=== PATIENT | male | born 1975 ===

== ENCOUNTER 2016-07-24 02:28 | Emergency (ER) | payer MEDICAID, OTHER ==
[2016-07-24 02:28] VITALS: BMI 27.1
[2016-07-24 02:45] VITALS: BP 125/82; PULSE 112; RESP 20; TEMP 97.5; O2SAT 100
[2016-07-24] MEDS ORDERED: Acetaminophen-Codeine 300/30 mg Tab PO STA (03:59)
[2016-07-24] MEDS ORDERED: Acetaminophen-Codeine 300/30 mg Tab PO ONE (04:03)
--- NOTE | 2016-07-24 04:06 | C.PDOC ---
History Of Present Illness 40 y/o male presents to ER c/o of sinus pressure intermittently x 2 weeks since sinus surgery at [facility]. Pt reports that pain is now worse and no longer relieved with tylenol PO. Pt denies nosebleed, nasal drainage, facial swelling, or headache Time Seen by Provider: 07/24/16 03:34 Chief Complaint (Nursing): ENT Problem History Per: Patient Current Symptoms Are (Timing): Still Present Past Medical History Vital Signs: Last Vital Signs Temp 97.5 F L 07/24/16 02:37 Pulse 112 H 07/24/16 02:37 Resp 20 07/24/16 02:37 BP 125/82 07/24/16 02:37 Pulse Ox 100 07/24/16 02:37 - Medical History PMH: No Chronic Diseases Family History: States: Unknown Family Hx - Social History Hx Tobacco Use: No Hx Alcohol Use: No Hx Substance Use: No - Immunization History Hx Tetanus Toxoid Vaccination: No Hx Influenza Vaccination: No Hx Pneumococcal Vaccination: No Review Of Systems Constitutional: Negative for: Fever ENT: Positive for: Nose Pain, Other (sinus pressure) Respiratory: Negative for: Shortness of Breath Physical Exam - Physical Exam Appears: Well, Non-toxic, No Acute Distress Skin: Normal Color Head: Atraumatic, No Other (parasinuses tenderness) Eye(s): bilateral: Normal Inspection, PERRL Nose: No Discharge, No Epistaxis, No Tenderness Oral Mucosa: Moist Neck: Normal Neurological/Psych: Oriented x3 ED Course And Treatment O2 Sat by Pulse Oximetry: 100 Progress Note: Pt received 2 tabs of tylenol 3 and was advised to follwo up with ENT who performed the surgery for evaluation Disposition Counseled Patient/Family Regarding: Diagnosis, Need For Followup, Rx Given - Disposition Referrals: Your ENT doctor, Office [Other] Disposition: HOME/ ROUTINE Disposition Time: 04:09 Condition: STABLE Additional Instructions: Take meds as directed Follow up with PMD Return to ER if worse Prescriptions: Acetaminophen with Codeine [Tylenol with Codeine #3 Tablet] 1 each PO QID #14 tablet Cetirizine HCl [Zyrtec] 10 mg PO DAILY #20 capsule Instructions: Sinusitis (ED) - Clinical Impression Clinical Impression: Sinus pain
== END 2016-07-24 04:20 | disposition home or self-care (01) ==
LOC: C.ER 02:28
DX: J34.89 Other specified disorders of nose and nasal sinuses (principal)

== ENCOUNTER 2016-09-20 00:28 | Emergency (ER) | payer MEDICAID, OTHER ==
[2016-09-20 00:29] VITALS: BMI 27.1
[2016-09-20 00:44] VITALS: TEMP 98.2; O2SAT 99
[2016-09-20 01:21] LABS: BASO # 0.1 K/uL (0.0-0.2); EOS # 0.2 K/uL (0.0-0.7); EOS % 2.9 % (0.0-4.0); LYMPH # 2.7 K/uL (1.0-4.3); LYMPH % 34.8 % (20.0-40.0); MEAN CELL VOLUME 89.4 fL (80.0-94.0); MEAN CORPUSCULAR HEMOGLOBIN 29.8 pg (27.0-31.0); MEAN CORPUSCULAR HGB CONC 33.4 g/dL (33.0-37.0); MEAN PLATELET VOLUME 7.2 fL (7.2-11.7); MONO # 0.6 K/uL (0.0-0.8); MONO % 7.1 % (0.0-10.0); RED CELL DISTRIBUTION WIDTH 13.1 % (11.5-14.5); WHITE BLOOD COUNT 7.9 K/uL (4.8-10.8)
[2016-09-20 01:29] LABS: CHLORIDE 101 mmol/L (98-107)
[2016-09-20 01:30] LABS: POTASSIUM 4.4 mmol/L (3.6-5.2); SODIUM 140 mmol/L (132-148)
[2016-09-20 01:32] LABS: CARBON DIOXIDE 28 mmol/L (22-30); GFR AFRICAN-AMERICAN > 60
[2016-09-20 01:33] LABS: ALB/GLOB RATIO 1.4 (1.0-2.1); ALKALINE PHOSPHATASE 77 U/L (38-126); ALT/SGPT 26 U/L (21-72); AST/SGOT 23 U/L (17-59); BILIRUBIN,TOTAL 0.3 mg/dL (0.2-1.3); BLOOD UREA NITROGEN 13 mg/dL (9-20); CALCIUM 9.1 mg/dl (8.6-10.4); GLUCOSE,RANDOM 88 mg/dL (75-110); TOTAL PROTEIN 7.2 g/dL (6.3-8.3)
[2016-09-20] MEDS ORDERED: Sodium Chloride 0.9% 1,000 ML ONE (01:38)
[2016-09-20] MEDS ORDERED: Oxycodone/Acetaminophen 5/325 mg Tab ONE ×2 (01:39→03:28)
[2016-09-20] MEDS: Sodium Chloride 0.9% 1,000 ML IV ONE (01:40)
[2016-09-20] MEDS: Oxycodone/Acetaminophen 5/325 mg Tab PO STA ×2 (01:49→03:25)
--- NOTE | 2016-09-20 02:16 | C.PDOC ---
History Of Present Illness 40 year old patient presents to the ED complaining of bilateral testicular pain that started a week ago. He reports the pain is greater on the left than right. Patient states he had this happen before about 30 years ago. There was a lot of swelling, but he doesn't know what caused it. Patient denies fever, dysuria, penile discharge, abdominal pain, concern for STD, or any trauma. Time Seen by Provider: 09/20/16 00:53 Chief Complaint (Nursing): Male Genitourinary History Per: Patient History/Exam Limitations: no limitations Onset/Duration Of Symptoms: Other (1 week) Current Symptoms Are (Timing): Still Present Severity: Mild Pain Scale Rating Of: 3 Quality Of Discomfort: "Pain" Alleviating Factors: None Past Medical History Reviewed: Historical Data, Nursing Documentation, Vital Signs Vital Signs: Last Vital Signs Temp 98.2 F 09/20/16 04:02 Pulse 74 09/20/16 04:02 Resp 20 09/20/16 04:02 BP 128/70 09/20/16 04:02 Pulse Ox 99 09/20/16 04:11 Family History: States: No Known Family Hx - Social History Hx Tobacco Use: No Hx Alcohol Use: Yes Hx Substance Use: No - Immunization History Hx Tetanus Toxoid Vaccination: No Hx Influenza Vaccination: No Hx Pneumococcal Vaccination: No Review Of Systems Except As Marked, All Systems Reviewed And Found Negative. Constitutional: Negative for: Fever Gastrointestinal: Negative for: Abdominal Pain Genitourinary: Positive for: Other (bilateral testicular pain; left > right). Negative for: Dysuria, Penile Discharge Physical Exam - Physical Exam Appears: Non-toxic, No Acute Distress, Other (comfortable) Skin: Warm, Dry Head: Atraumatic, Normacephalic Neck: Normal ROM, Supple Lymphatic: No Adenopathy Chest: Symmetrical Cardiovascular: Rhythm Regular Respiratory: Normal Breath Sounds, No Rales, No Rhonchi, No Wheezing Gastrointestinal/Abdominal: Soft, No Tenderness Back: Normal Inspection Male Genital: Circumcised, Other (no hernia; subjective tenderness to palpation ; no swelling; no erythema; no lesions on penis or on testicles) Extremity: Normal ROM Neurological/Psych: Oriented x3, Normal Speech, Normal Cognition Gait: Steady ED Course And Treatment - Laboratory Results Result Diagrams: 09/20/16 01:19 09/20/16 01:19 O2 Sat by Pulse Oximetry: 99 (room air) Pulse Ox Interpretation: Normal - CT Scan/US Testicular US Other Rad Studies (CT/US): Read By Radiologist (Allan Calzada MD), Radiology Report Reviewed CT/US Interpretation: EXAM: US Scrotum. CLINICAL HISTORY: 40 years old, male ; Pain; Scrotum pain; Additional info: Testicular pain , R/O torsion. TECHNIQUE : Real-time ultrasound of the scrotum with color Doppler and image documentation. COMPARISON: No relevant prior studies available. FINDINGS: Right testicle: No mass. No torsion. Left testicle: No mass. No torsion. Epididymides: Unremarkable as visualized. Scrotum: Small bilateral hydroceles. LEFT varicocele. IMPRESSION: 1. No sonographic evidence of testicular torsion. 2. Incidental/non-acute findings are described above. Progress Note: Percocet and IV fluids were given. Labs were sent. Testicular US was taken. Patient is advised to follow up with Urologist. Return if symptoms worsen. Disposition Counseled Patient/Family Regarding: Studies Performed, Diagnosis, Need For Followup, Rx Given - Disposition Referrals: Samuel Damian MD [Staff Provider] - Disposition: HOME/ ROUTINE Disposition Time: 03:10 Condition: STABLE Additional Instructions: FOLLOW UP WITH UROLOGY WITHIN 1 WEEK USE MEDICATION FOR PAIN NEEDED RETURN TO ER IF SYMPTOMS WORSEN Prescriptions: Acetaminophen with Codeine [Tylenol with Codeine #3 Tablet] 1 each PO Q6 PRN # 15 tablet PRN Reason: pain Instructions: Hydrocele (ED), Varicocele (ED) Print Language: CHINESE - POA Present On Arrival: None - Clinical Impression Clinical Impression: Varicocele, Hydrocele - Scribe Statement The provider has reviewed the documentation as recorded by the Scribsloane Hernandez Provider Attestation: All medical record entries made by the Scribe were at my direction and personally dictated by me. I have reviewed the chart and agree that the record accurately reflects my personal performance of the history, physical exam, medical decision making, and the department course for this patient. I have also personally directed, reviewed, and agree with the discharge instructions and disposition.
--- NOTE | 2016-09-20 02:30 | US ---
EXAM: US Scrotum CLINICAL HISTORY: 40 years old, male; Pain; Scrotum pain; Additional info: Testicular pain , R/O torsion TECHNIQUE: Real-time ultrasound of the scrotum with color Doppler and image documentation. COMPARISON: No relevant prior studies available. FINDINGS: Right testicle: No mass. No torsion. Left testicle: No mass. No torsion. Epididymides: Unremarkable as visualized. Scrotum: Small bilateral hydroceles. LEFT varicocele. IMPRESSION: 1. No sonographic evidence of testicular torsion. 2. Incidental/non-acute findings are described above.
[2016-09-20 02:50] LABS: URINE BILIRUBIN NEGATIVE (NEGATIVE); URINE BLOOD NEGATIVE (NEGATIVE); URINE COLOR Yellow (YELLOW); URINE GLUCOSE (UA) NORMAL (Normal); URINE KETONE NEGATIVE (NEGATIVE); URINE LEUKOCYTE ESTERASE NEG Leu/uL (Negative); URINE PROTEIN NEGATIVE (NEGATIVE); URINE UROBILINOGEN NORMAL mg/dL (0.2-1.0); WBC URINE 1 /hpf (0-5)
[2016-09-20 04:04] VITALS: BP 128/70; PULSE 74; RESP 20
== END 2016-09-20 04:02 | disposition home or self-care (01) ==
LOC: C.ER 00:28
DX: I86.1 Scrotal varices (principal); N43.3 Hydrocele, unspecified
CPT/HCPCS: 76870; 80053; 81001; 85025; 87086; 96360; 99284; J7040

== ENCOUNTER 2017-01-21 07:45 | Emergency (ER) | payer MEDICAID ==
[2017-01-21 07:53] VITALS: O2SAT 100; BMI 29.2
[2017-01-21] MEDS ORDERED: Sodium Chloride 0.9% 1,000 ML IV ONE ×2 (08:33→11:23)
[2017-01-21] MEDS ORDERED: Belladonna-Phenobarbital PO STA (08:33)
[2017-01-21] MEDS ORDERED: Aluminum Hydroxide/Magnesium Hydroxide Susp (30 mL) PO STA (08:33)
[2017-01-21] MEDS ORDERED: Belladonna-Phenobarbital ONE (08:55)
[2017-01-21] MEDS ORDERED: Aluminum Hydroxide/Magnesium Hydroxide Susp (30 mL) ONE (08:56)
[2017-01-21] MEDS ORDERED: Sodium Chloride 0.9% 1,000 ML ONE (08:56)
[2017-01-21 09:01] LABS: BASO % 0.5 % (0.0-2.0); EOS # 0.3 K/uL (0.0-0.7); HEMATOCRIT 43.2 % (35.0-51.0); LYMPH # 1.9 K/uL (1.0-4.3); LYMPH % 28.5 % (20.0-40.0); MEAN CELL VOLUME 90.6 fL (80.0-94.0); MEAN CORPUSCULAR HEMOGLOBIN 31.2 pg (27.0-31.0); MEAN CORPUSCULAR HGB CONC 34.5 g/dL (33.0-37.0); MEAN PLATELET VOLUME 7.5 fL (7.2-11.7); MONO # 0.4 K/uL (0.0-0.8); MONO % 5.9 % (0.0-10.0); WHITE BLOOD COUNT 6.8 K/uL (4.8-10.8)
[2017-01-21 09:04] LABS: CHLORIDE 103 mmol/L (98-107)
[2017-01-21 09:05] LABS: SODIUM 135 mmol/L (132-148)
[2017-01-21 09:07] LABS: BILIRUBIN,TOTAL 0.6 mg/dL (0.2-1.3); CARBON DIOXIDE 22 mmol/L (22-30); GFR AFRICAN-AMERICAN > 60
[2017-01-21 09:08] LABS: ALB/GLOB RATIO 1.3 (1.0-2.1); ALKALINE PHOSPHATASE 80 U/L (38-126); ALT/SGPT 30 U/L (21-72); AST/SGOT 24 U/L (17-59); BLOOD UREA NITROGEN 15 mg/dL (9-20); CALCIUM 9.2 mg/dl (8.6-10.4); GLUCOSE,RANDOM 128 mg/dL (75-110); TOTAL PROTEIN 8.1 g/dL (6.3-8.3)
[2017-01-21 09:43] LABS: URINE BILIRUBIN NEGATIVE (NEGATIVE); URINE BLOOD NEGATIVE (NEGATIVE); URINE COLOR Yellow (YELLOW); URINE GLUCOSE (UA) NORMAL (Normal); URINE KETONE NEGATIVE (NEGATIVE); URINE LEUKOCYTE ESTERASE NEG Leu/uL (Negative); URINE PROTEIN NEGATIVE (NEGATIVE); URINE UROBILINOGEN NORMAL mg/dL (0.2-1.0); WBC URINE < 1 /hpf (0-5)
--- NOTE | 2017-01-21 10:38 | CT ---
PROCEDURE: CT Abdomen and Pelvis without intravenous contrast HISTORY: abd pain COMPARISON: Comparison is made to the previous ultrasound of the abdomen dated 02/10/2016 TECHNIQUE: Axial and reformatted coronal and sagittal CT images of the abdomen and pelvis were obtained without IV or oral contrast administration.. Contrast Dose: 0 Radiation dose: Total exam DLP = 305.16 mGy-cm. This CT exam was performed using one or more of the following dose reduction techniques: Automated exposure control, adjustment of the mA and/or kV according to patient size, and/or use of iterative reconstruction technique. FINDINGS: LOWER THORAX: Unremarkable. LIVER: Unremarkable. No gross lesion or ductal dilatation. GALLBLADDER AND BILE DUCTS: Unremarkable. PANCREAS: Unremarkable. No gross lesion or ductal dilatation. SPLEEN: Unremarkable. ADRENALS: Unremarkable. No mass. KIDNEYS AND URETERS: Unremarkable. No hydronephrosis. No solid mass. VASCULATURE: Unremarkable. No aortic aneurysm. BOWEL: Scattered colonic diverticulosis seen without evidence of diverticulitis. No evidence of bowel obstruction. APPENDIX: Unremarkable. Normal appendix. PERITONEUM: Unremarkable. No free fluid. No free air. LYMPH NODES: Unremarkable. No enlarged lymph nodes. BLADDER: Unremarkable. REPRODUCTIVE: Unremarkable. BONES: No acute fracture. OTHER FINDINGS: None. IMPRESSION: No evidence of nephrolithiasis or hydronephrosis. Scattered colonic diverticulosis without definite evidence of diverticulitis.
--- NOTE | 2017-01-21 11:07 | C.PDOC ---
History Of Present Illness 41-year-old male, presents to the emergency department with complaints of GI distress. Patient states she has been experiencing non-bloody/watery diarrhea that started in the beginning of December. Patient states he lost 16 lbs, and is now experiencing "crampy" abdominal pain, mainly in epigastric and RUQ. Patient notes he is taking Immodium and Pepto-Bismol w/ no resolution of symptoms. Patient states he has never experienced these symptoms in the past. States he drinks alcohol and smokes occasionally. Patient notes associated nausea, one episode of non-bilious/non-bloody vomiting, loss of appetite and weight loss. No other complaints at this time, Time Seen by Provider: 01/21/17 07:56 Chief Complaint (Nursing): Abdominal Pain History Per: Patient History/Exam Limitations: no limitations Onset/Duration Of Symptoms: Days Current Symptoms Are (Timing): Still Present Severity: Moderate Location Of Pain/Discomfort: RUQ, Epigastric Past Medical History Reviewed: Historical Data, Nursing Documentation, Vital Signs Vital Signs: Last Vital Signs Temp 97.4 F L 01/21/17 11:27 Pulse 52 L 01/21/17 11:27 Resp 17 01/21/17 11:27 BP 129/80 01/21/17 11:27 Pulse Ox 100 01/21/17 11:28 Family History: States: No Known Family Hx - Social History Hx Tobacco Use: No Hx Alcohol Use: Yes Hx Substance Use: No - Immunization History Hx Tetanus Toxoid Vaccination: No Hx Influenza Vaccination: No Hx Pneumococcal Vaccination: No Review Of Systems Except As Marked, All Systems Reviewed And Found Negative. Constitutional: Positive for: Sweats, Weight loss. Negative for: Fever, Chills Cardiovascular: Negative for: Chest Pain Respiratory: Negative for: Shortness of Breath Gastrointestinal: Positive for: Nausea, Vomiting, Abdominal Pain, Diarrhea Musculoskeletal: Negative for: Back Pain Skin: Negative for: Rash Neurological: Negative for: Weakness, Numbness, Headache, Dizziness Physical Exam - Physical Exam Appears: Non-toxic, No Acute Distress Skin: Warm, Dry, No Rash Head: Atraumatic, Normacephalic Eye(s): bilateral: Normal Inspection, PERRL Nose: Normal Oral Mucosa: Moist Lips: Normal Appearing Neck: Normal ROM Chest: Symmetrical Cardiovascular: Rhythm Regular, No Murmur Respiratory: Normal Breath Sounds, No Accessory Muscle Use Gastrointestinal/Abdominal: Soft, Tenderness (Epigastric and RUQ) Extremity: Normal ROM Neurological/Psych: Oriented x3, Normal Speech ED Course And Treatment - Laboratory Results Result Diagrams: 01/21/17 08:52 01/21/17 08:52 O2 Sat by Pulse Oximetry: 100 Medical Decision Making Medical Decision Making: CT and lab work grossly normal. Will order 1L fluids and dc pt home for outpatient f/u with GI. Disposition Counseled Patient/Family Regarding: Studies Performed, Diagnosis, Need For Followup - Disposition Referrals: Julio Leone MD [Staff Provider] - Disposition: HOME/ ROUTINE Disposition Time: 11:45 Condition: STABLE Prescriptions: Ciprofloxacin [Cipro] 1 tab PO BID #14 tab Metronidazole [Flagyl] 1 tab PO BID #14 tab Instructions: Enteritis (ED) Forms: [facility] (Turkmen), General Discharge Instructions - POA Present On Arrival: None - Clinical Impression Clinical Impression: Enteritis, Diarrhea - Scribe Statement The provider has reviewed the documentation as recorded by the Scribe (Nick Olsen) All medical record entries made by the Scribe were at my direction and personally dictated by me. I have reviewed the chart and agree that the record accurately reflects my personal performance of the history, physical exam, medical decision making, and the department course for this patient. I have also personally directed, reviewed, and agree with the discharge instructions and disposition.
[2017-01-21 11:28] VITALS: BP 129/80; PULSE 52; RESP 17; TEMP 97.4
== END 2017-01-21 12:02 | disposition home or self-care (01) ==
LOC: C.ER 07:45
DX: K52.9 Noninfective gastroenteritis and colitis, unspecified (principal); R19.7 Diarrhea, unspecified
CPT/HCPCS: 74176; 80053; 80324; 80345; 80346; 80349; 80353; 80358; 80361; 81001; 83605; 83690; 83992; 85025; 96374; 96375; 99285; J2405; J7040

== ENCOUNTER 2017-11-23 12:47 | Emergency (ER) | payer OTHER ==
[2017-11-23 12:54] VITALS: BMI 23.6
[2017-11-23 12:59] VITALS: RESP 18
[2017-11-23] MEDS ORDERED: Sodium Chloride 0.9% 1,000 ML IV ONE ×2 (13:52→15:04)
--- NOTE | 2017-11-23 13:58 | C.PDOC ---
History Of Present Illness 41-YEAR-OLD MALE, PRESENTS TO THE EMERGENCY DEPARTMENT S/P FALL YESTERDAY, PT IS COMPLAINING OF LOC, ABD PAIN, AND GEN MYALGIA. WHILE AT WORK, HE CLAIMS HE FELL FOUR STORIES, FALLING DOWN THROUGH A HOLE TO ANOTHER LEVEL. PT HAD IMMEDIATE LOC, REVIVED BY CO-WORKERS, REFUSED MEDICAL EVAL. HE TOOK HIMSELF HOME. PS HE WENT TO THE BATHROOM AND HAD A RECURRENT LOC. PS WAS ABLE TO GO TO WORK THIS AM, BUT JOB SENT TO ED, STS UNABLE TO WORK PRIOR TO MED EVAL. +EPIG RUQ PAIN ON EXAM: HE HAS RGHT PERIORBITAL HEMATOMA GREATER THAN 24H APPEARANCE NO HEMATOMA, SKIN INTACT EYES CLR REACTIVE CONJUNCTIVA CLR EOMI MULTIPLE ABRASIONS ON SCALP NO SWELLING NONTENDER CHEST ATRAUMATIC LUNGS CLR BELLY SOME MINIMAL EPIG, RUQ TEN EXT OLD ABRASION. GREATER THAN 24HRS, LEFT LOWER LEG, L ELBOW BACK ATRAUM NO SWELL NONTEN FROM PSYCH: NO ACUTE INTOX HYPERVENTILATING, NO ACTIVE PSYCHOSIS/SUICIDAL. +ANXIOUS - HPI Time Seen by Provider: 11/23/17 13:28 Chief Complaint (Nursing): Dizziness/Lightheaded History Per: Patient History/Exam Limitations: no limitations Injury Occurred (Timing): Days Ago: (1) Past Medical History Reviewed: Historical Data, Nursing Documentation, Vital Signs Vital Signs: Last Vital Signs Temp 98 F 11/23/17 12:58 Pulse 115 H 11/23/17 12:58 Resp 18 11/23/17 12:58 BP 123/91 H 11/23/17 12:58 Pulse Ox 100 11/23/17 18:03 - Medical History PMH: Seizures Family History: States: No Known Family Hx - Social History Hx Tobacco Use: No Hx Alcohol Use: Yes Hx Substance Use: No - Immunization History Hx Tetanus Toxoid Vaccination: No Hx Influenza Vaccination: No Hx Pneumococcal Vaccination: No Review Of Systems Constitutional: Negative for: Weakness Cardiovascular: Negative for: Chest Pain, Palpitations Respiratory: Negative for: Shortness of Breath Gastrointestinal: Positive for: Abdominal Pain. Negative for: Nausea, Vomiting Musculoskeletal: Negative for: Neck Pain, Back Pain Neurological: Negative for: Weakness, Numbness, Headache, Dizziness Physical Exam - Physical Exam Appears: Other ( NO ACUTE INTOX HYPERVENTILATING, NO ACTIVE PSYCHOSIS/SUICIDAL. +ANXIOUS) Skin: Normal Color, Warm, Dry, No Rash Head: Other (MULTIPLE ABRASIONS ON SCALP NO SWELLING NONTENDER; RGHT PERIORBITAL HEMATOMA GREATER THAN 24H APPEARANCE ) Eye(s): bilateral: PERRL, EOMI Nose: Normal Oral Mucosa: Moist Lips: Normal Appearing Neck: Normal ROM Chest: Symmetrical, No Deformity, No Tenderness Cardiovascular: Rhythm Regular, No Murmur Respiratory: Normal Breath Sounds, No Decreased Breath Sounds (equal breath sounds B/L), No Accessory Muscle Use Gastrointestinal/Abdominal: Other (SOME MINIMAL EPIG, RUQ TEN ) Back: Other (ATRAUM NO SWELL NONTEN) Extremity: Other (OLD ABRASION. GREATER THAN 24HRS, LEFT LOWER LEG, L ELBOW) ED Course And Treatment - Laboratory Results Result Diagrams: 11/23/17 14:07 11/23/17 14:07 Interpretation Of Abnormal: NEW ONSET RENAL INSUF COMPARED TO PRIOR; NEW ONSET ABN LFT O2 Sat by Pulse Oximetry: 100 (RA) Pulse Ox Interpretation: Normal - Radiology CXR: Viewed By Me, Read By Radiologist CXR Interpretation: Yes: No Acute Disease Progress - Re-Evaluation Re-evaluation Note: 11/23/17 13:58 PT REFUSING TO WEAR CCOLLAR DUE TO CLAUSTROPHOBIA. BECOMING INCREASING ANXIOUS, HYPERVENTILATING W INDUCED TETANY. CONSOLABLE BY GF @ BEDSIDE. 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 STATES VERBAL UNDERSTANDING OF THE NEED FOR COLLAR RO CSPINE FX UNTIL CT COMPLETED. COLLAR REAPPLIED BY ME. 11/23/17 17:08 CT REPORTS REVIEWED. CCOLLAR REMOVED BY ME APPEARS COMFORTABLE NAD. 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 11/23/17 18:22 D/W DR SHOOK TRAUMA [place] [facility] [place] AWARE OF ER FINDINGS. ACCEPTS FOR TRANSFER [place] [facility] [place] - Data Reviewed Data Reviewed: Lab, Diagnostic imaging, Old records - Critical Care Citical Care: Excluding Proc Time Critical Care Time: 90 minutes Disposition Counseled Patient/Family Regarding: Studies Performed, Diagnosis - Disposition Disposition: Trans to Other Acute Care Hosp Disposition Time: 18:22 Condition: SERIOUS Forms: [facility] [employer] [facility] (Greenlandic) - POA Present On Arrival: Falls Or Trauma - Clinical Impression Clinical Impression: Acute renal insufficiency, Multiple contusions, Nasal fracture - Scribe Statement The provider has reviewed the documentation as recorded by the Scribe (Nick Olsen) All medical record entries made by the Scribe were at my direction and personally dictated by me. I have reviewed the chart and agree that the record accurately reflects my personal performance of the history, physical exam, medical decision making, and the department course for this patient. I have also personally directed, reviewed, and agree with the discharge instructions and disposition. Decision To Admit - . Patient Diagnosis: Multiple contusions, Nasal fracture, Acute renal insufficiency
[2017-11-23 14:13] LABS: BASO % 0.2 % (0.0-2.0); EOS % 0.1 % (0.0-4.0); LYMPH # 1.2 K/uL (1.0-4.3); LYMPH % 7.1 % (20.0-40.0); MEAN CORPUSCULAR HEMOGLOBIN 32.4 pg (27.0-31.0); MEAN CORPUSCULAR HGB CONC 34.8 g/dL (33.0-37.0); MEAN PLATELET VOLUME 7.4 fL (7.2-11.7); MONO # 1.3 K/uL (0.0-0.8); MONO % 7.6 % (0.0-10.0); NEUT # 14.3 K/uL (1.8-7.0); NRBC % 0.4 % (0.0-2.0); RBC 5.84 Mil/uL (4.40-5.90); RED CELL DISTRIBUTION WIDTH 13.3 % (11.5-14.5)
[2017-11-23 14:16] LABS: HEMOGLOBIN 18.9 g/dL (12.0-18.0); MEAN CELL VOLUME 93.2 fL (80.0-94.0); PLATELET COUNT 412 K/uL (130-400); WHITE BLOOD COUNT 16.8 K/uL (4.8-10.8)
[2017-11-23 14:27] LABS: INR 1.1; PROTHROMBIN TIME 11.6 SECONDS (9.7-12.2)
--- NOTE | 2017-11-23 14:28 | RAD ---
Date of service: 11/23/2017 PROCEDURE: Radiographs of the pelvis. HISTORY: PAIN COMPARISON: None. FINDINGS: BONES: Examination limited to a single view. The patient is slightly obliquely positioned. . Pelvic Bones: Unremarkable. Hips: Grossly unremarkable. JOINTS: Sacroiliac Joints: Unremarkable. Pubic Symphysis: Unremarkable. OTHER FINDINGS: None. IMPRESSION: Unremarkable radiographs of the pelvis.
--- NOTE | 2017-11-23 14:31 | RAD ---
Date of service: 11/23/2017 PROCEDURE: CHEST RADIOGRAPH, 1 VIEW HISTORY: TRAUMA COMPARISON: 04/20/2025 FINDINGS: LUNGS: Clear. PLEURA: No pneumothorax or pleural fluid seen. CARDIOVASCULAR: Normal. OSSEOUS STRUCTURES: No significant abnormalities. VISUALIZED UPPER ABDOMEN: Normal. OTHER FINDINGS: None. IMPRESSION: No active disease.
[2017-11-23 14:54] LABS: BLOOD UREA NITROGEN 29 mg/dL (9-20); GFR AFRICAN-AMERICAN 29; GFR NON-AFRICAN AMERICAN 24
[2017-11-23 14:55] LABS: ALB/GLOB RATIO 1.2 (1.0-2.1); ALBUMIN 5.8 g/dL (3.5-5.0); AST/SGOT 74 U/L (17-59); CALCIUM 11.1 mg/dl (8.6-10.4)
[2017-11-23 14:56] LABS: ALT/SGPT 62 U/L (21-72)
[2017-11-23 15:01] LABS: LYMPHOCYTE 11 % (20-40); MONOCYTE 7 % (0-10); NEUTROPHIL 82 % (50-75); TOTAL CELLS COUNTED 100
[2017-11-23 15:03] LABS: PLATELET ESTIMATE NORMAL (NORMAL)
[2017-11-23] MEDS ORDERED: Sodium Chloride 0.9% 1,000 ML ONE (15:11)
[2017-11-23] MEDS ORDERED: Bacitracin 500 Units/gm Oint Foilpak UD ONE (15:14)
--- NOTE | 2017-11-23 16:06 | CT ---
Date of service: 11/23/2017 PROCEDURE: CT Cervical Spine without contrast HISTORY: TRAUMA. COMPARISON: None available. TECHNIQUE: Axial computed tomography images were obtained of the cervical spine without the use of intravenous contrast. Coronal and sagittal reformatted images were created and reviewed. Radiation dose: Total exam DLP = 477.63 mGy-cm. This CT exam was performed using one or more of the following dose reduction techniques: Automated exposure control, adjustment of the mA and/or kV according to patient size, and/or use of iterative reconstruction technique. FINDINGS: VERTEBRAE: No acute compression fractures nor retropulsed fragments. Minor chronic anterior stature loss of the C4 segment and to a lesser degree C5 segment. . Remaining vertebral bodies otherwise exhibit normal stature. Vertebral bodies facets normally aligned. DISCS/SPINAL CANAL/NEURAL FORAMINA: At the C3 level, there is relatively adequate disc height. . There is small central bilateral disc protrusion that flattens ventral surface thecal sac and spinal cord. Central canal is slightly narrowed. Facets a prominent however exit foramina appear adequate. At the C3-C4 level, there is mild disc space narrowing more so along the posterior disc margin. Small central and bilateral osteophytic ridge disc complex minimally indents the ventral surface cord. Central canal is slightly narrowed at level facet joints and uncovertebral joints slightly overgrown left greater than right. Exit foramina marginal to adequate. C4-C5 level, there is mild posterior disc space narrowing. Small central and bilateral disc bulge indents the ventral surface of thecal sac reaching but not significantly deforming the ventral surface cord. Central canal appears marginal. Uncovertebral facets are also slightly overgrown. . Exit foramina are marginal to minimally narrowed. At the C5-C6 level, there is also moderate disc space narrowing on along the posterior disc margin. Small irregular disc ridge complex contiguous with hypertrophic uncovertebral joints and the slightly the facets also hypertrophic. The central canal appears adequate. Exit foramina appear narrowed bilaterally. At the C6-C7 level, there is space narrowing with prominent posterior osteophyte formation larger on the right than left and also contiguous hypertrophic uncovertebral joints. Central canal is slightly narrowed more so on the right side. Exit foramina are narrowed bilaterally as well. PARASPINAL SOFT TISSUES: Paraspinal soft tissues unremarkable. OTHER FINDINGS: None. IMPRESSION: No acute fractures. Minor chronic anterior stature loss of the the C4 and to a lesser degree C5 segments. Multilevel degenerative spondylosis.
--- NOTE | 2017-11-23 16:07 | CT ---
Date of service: 11/23/2017 PROCEDURE: CT HEAD WITHOUT CONTRAST. HISTORY: Trauma COMPARISON: 04/23/2015. TECHNIQUE: Axial computed tomography images were obtained through the head/brain without intravenous contrast. Radiation dose: Total exam DLP = 934.80 mGy-cm. This CT exam was performed using one or more of the following dose reduction techniques: Automated exposure control, adjustment of the mA and/or kV according to patient size, and/or use of iterative reconstruction technique. FINDINGS: HEMORRHAGE: No intracranial hemorrhage. BRAIN: There are mild chronic microangiopathic changes. There is no mass, mass effect or abnormal extra-axial fluid collection. There is no territorial infarction. The midline sagittal structures are normal. VENTRICLES: The ventricles are normal in size, shape and configuration. CALVARIUM: There is no calvarial fracture. There is mild posterior vertex extracranial soft tissue swelling. PARANASAL SINUSES: Predominantly clear. MASTOID AIR CELLS: Predominantly clear. OTHER FINDINGS: None. IMPRESSION: No acute intracranial abnormality.
--- NOTE | 2017-11-23 16:16 | CT ---
Date of service: 11/23/2017 PROCEDURE: CT MAXILLOFACIAL BONES WITHOUT CONTRAST. HISTORY: TRAUMA COMPARISON: Correlation made with concurrent CT scan of the brain. Comparison also made with prior CT scan maxillofacial skeleton 04/23/2015. TECHNIQUE: Contiguous axial CT images of the maxillofacial bones were obtained. Coronal and sagittal reformats were generated. Radiation dose: Total exam DLP = mGy-cm. This CT exam was performed using one or more of the following dose reduction techniques: Automated exposure control, adjustment of the mA and/or kV according to patient size, and/or use of iterative reconstruction technique. . FINDINGS: NASAL BONES: There is a with displaced left-sided nasal bone fracture which appears to be in given the overlying mild soft tissue swelling. There is also persistent mild deviation of the anterior aspect of the nasal septum slightly to the left unchanged prior exam. ORBITS: The bony orbits intact of despite mild the right lateral orbital supraorbital and right frontal scalp swelling. . Globes intact and lenses appropriately located. There are no retrobulbar hemorrhages or collections. Optic nerves and extraocular musculature unremarkable. PARANASAL SINUSES/ MASTOIDS: There has been interval bilateral medial wall maxillary antrostomies subtotal ethmoidectomy with resection of the estee right middle turbinate. MAXILLA: Unremarkable. MANDIBLE/ TEMPOROMANDIBULAR JOINTS: Unremarkable. SKULL BASE: Unremarkable. TEMPORAL BONES: Middle ears and mastoid grossly unremarkable. OTHER FINDINGS: Mild right supraorbital and frontal scalp swelling. IMPRESSION: Minimally displaced left anterior nasal bone fractures with overlying soft tissue swelling. There is also mild right lateral orbital supraorbital and right frontal scalp swelling. Extensive postoperative changes involving paranasal sinuses and nasal cavity as described.
[2017-11-23] MEDS ORDERED: Tetanus/Diphtheria Toxoids 0.5 ml Syringe IM ONE ×2 (16:35→16:57)
--- NOTE | 2017-11-23 16:46 | CT ---
Date of service: 11/23/2017 PROCEDURE: CT Chest, Abdomen and Pelvis without intravenous contrast HISTORY: TRAUMA COMPARISON: CT abdomen/pelvis 01/21/2017 TECHNIQUE: Radiation dose: Total exam DLP = 431.76 mGy-cm. This CT exam was performed using one or more of the following dose reduction techniques: Automated exposure control, adjustment of the mA and/or kV according to patient size, and/or use of iterative reconstruction technique. FINDINGS: CT CHEST WITHOUT CONTRAST: LUNGS: Clear. No nodule, mass or consolidation. MEDIASTINUM: Unremarkable. Normal caliber aorta and pulmonary arterial trunk. Normal size heart. LYMPH NODES: Unremarkable. PLEURA: Unremarkable. No pneumothorax. No pleural fluid. BONES: Unremarkable. OTHER FINDINGS: None. CT ABDOMEN AND PELVIS: LIVER: Unremarkable. No gross lesion or ductal dilatation. GALLBLADDER AND BILE DUCTS: Unremarkable. PANCREAS: Unremarkable. No gross lesion or ductal dilatation. SPLEEN: Unremarkable. ADRENALS: Unremarkable. No mass. KIDNEYS AND URETERS: Unremarkable. No hydronephrosis. No solid mass. VASCULATURE: Unremarkable. No aortic aneurysm. BOWEL: Russell colonic diverticulosis. No evidence of diverticulitis. No bowel obstruction. APPENDIX: Normal appendix. PERITONEUM: Unremarkable. No free fluid. No free air. LYMPH NODES: Unremarkable. No enlarged lymph nodes. BLADDER: Nondistended REPRODUCTIVE: Normal prostate BONES: No acute fracture. OTHER FINDINGS: None. IMPRESSION: No evidence of thoracic or abdominal/pelvic visceral injury. Pancolonic diverticulosis incidentally noted, without evidence of diverticulitis. No additional abnormality.
[2017-11-23 17:37] LABS: BARBITURATES, UR NEGATIVE (NEGATIVE); PHENCYCLIDINE, UR NEGATIVE (NEGATIVE); SQUAMOUS EPITHIAL 2 /hpf (0-5); URINE BACTERIA FEW (<OCC); URINE BILIRUBIN NEGATIVE (NEGATIVE); URINE BLOOD 2+ (NEGATIVE); URINE CLARITY Hazy (Clear); URINE COLOR Amber (YELLOW); URINE GLUCOSE (UA) 1+ mg/dL (Normal); URINE LEUKOCYTE ESTERASE NEG Leu/uL (Negative); URINE PROTEIN 2+ mg/dL (NEGATIVE); URINE UROBILINOGEN NORMAL mg/dL (0.2-1.0)
[2017-11-23 17:53] LABS: BENZODIAZEPINES, UR POSITIVE (NEGATIVE); OPIATES, UR POSITIVE (NEGATIVE)
[2017-11-23] MEDS ORDERED: Morphine 4 MG/ML VIAL ONE (18:49)
[2017-11-23 18:52] VITALS: BP 115/77; PULSE 99; TEMP 98.2; O2SAT 97
--- NOTE | 2017-11-27 16:57 | CARD ---
APPROVED REPORT Date of service: 11/23/2017 EKG Measurement Heart [id number] IL [id number] [id number] <Conclusion> Sinus tachycardia Biatrial enlargement Rightward axis Pulmonary disease pattern Abnormal ECG
== END 2017-11-23 19:07 | disposition short-term general hospital (02) ==
LOC: C.ER 12:47 → C.9E 17:18 → UNDOADMOB 17:18 → C.3T 17:43 → C.9E 17:43 → C.ER 19:07
DX: S02.2XXA Fracture of nasal bones, initial encounter for closed fracture (principal); T14.8XXA Other injury of unspecified body region, initial encounter; W17.2XXA Fall into hole, initial encounter; Y92.9 Unspecified place or not applicable; Y99.0 Civilian activity done for income or pay; N28.9 Disorder of kidney and ureter, unspecified
CPT/HCPCS: 70450; 70486; 71045; 71250; 72125; 72170; 74176; 80053; 80320; 80324; 80345; 80346; 80349; 80353; 80358; 80361; 81001; 83992; 85025; 85610; 85730; 90471; 90714; 93005; 96361; 96374; 96375; 96376; 99285; J2060; J2270; J7030

== ENCOUNTER 2018-05-15 01:44 | Observation (INO) | payer OTHER ==
[2018-05-15 01:45] VITALS: BMI 23.6
--- NOTE | 2018-05-15 02:01 | C.PDOC ---
History Of Present Illness patient had dinner around 6-7 and went home and felt his left side numb."like I've slept wrong". No slurred speech, no weakness, no f/c/n/v. No trauma. Time Seen by Provider: 05/15/18 01:57 History Per: Patient History/Exam Limitations: no limitations Onset/Duration Of Symptoms: Hrs (6), Sudden Onset Current Symptoms Are (Timing): Still Present Severity: Moderate Pain Scale Rating Of: 5 Recent travel outside of the [place]: No Additional History Per: Patient Past Medical History - Medical History PMH: Seizures Family History: States: No Known Family Hx - Social History Hx Tobacco Use: No Hx Alcohol Use: Yes Hx Substance Use: No - Immunization History Hx Tetanus Toxoid Vaccination: No Hx Influenza Vaccination: No Hx Pneumococcal Vaccination: No Review Of Systems Constitutional: Negative for: Fever, Chills Eyes: Negative for: Vision Change ENT: Negative for: Throat Pain Cardiovascular: Negative for: Chest Pain Respiratory: Negative for: Shortness of Breath Gastrointestinal: Negative for: Nausea Genitourinary: Negative for: Dysuria Musculoskeletal: Negative for: Back Pain Skin: Negative for: Rash Neurological: Positive for: Numbness (left side) Psych: Positive for: Anxiety Physical Exam - Physical Exam Appears: Non-toxic Skin: Warm, Dry Head: Normacephalic Eye(s): bilateral: Normal Inspection, PERRL, EOMI Oral Mucosa: Moist Lips: Normal Appearing Throat: No Erythema Neck: Supple Chest: Symmetrical Cardiovascular: Rhythm Regular Respiratory: No Rales, No Rhonchi, No Wheezing Gastrointestinal/Abdominal: Soft, No Tenderness, No Distention Back: Normal Inspection Extremity: Normal ROM Extremity: Bilateral: Atraumatic, Normal Color And Temperature Pulses: Left Dorsalis Pedis: Normal, Right Dorsalis Pedis: Normal Neurological/Psych: Oriented x3, Normal Speech, Normal Cognition Gait: Steady ED Course And Treatment - Laboratory Results Result Diagrams: 05/15/18 02:15 05/15/18 02:15 ECG: Interpreted By Me, Viewed By Me ECG Rhythm: Sinus Rhythm (76), Nonspecific Changes O2 Sat by Pulse Oximetry: 100 Pulse Ox Interpretation: Normal - Radiology CXR: Interpreted by Me, Viewed By Me CXR Interpretation: No: Infiltrates, Fracture, Pnemothorax Critical Care Time - Critical Care Note Total Time (in mins): 30 Documented critical care: time excludes all time spent performing seperately billable procedures. NIHSS Stroke Scale - Date/Time Evaluation Performed Date Performed: 05/15/18 Time Performed: 01:47 When Was NIHSS Performed: Baseline - How Severe is the Stroke Level of Consciousness: 0=Alert LOC to Questions: 0=Both comments correct LOC to commands: 0=Obeys both correctly Best Gaze: 0=Normal Visual: 0=No visual loss Facial: 0=Normal Motor Arm - Left: 0=No drift Motor Arm - Right: 0=No drift Motor Leg - Left: 0=No drift Motor Leg - Right: 0=No drift Limb Ataxia: 0=Absent Sensory: 0=Normal Best Language: 0=No aphasia Dysarthia: 0=Normal articulation Extinction & Inattention (Neglect): 0=Normal, no object Score: 0 Disposition Discussed With DrPorsha: Jalen Hernandez Comment: accepted the pt on his service and tookover the care at 3:58AM Doctor Will See Patient In The: Hospital Counseled Patient/Family Regarding: Studies Performed, Diagnosis - Disposition Disposition: HOSPITALIZED Disposition Time: 01:57 Condition: GUARDED - POA Present On Arrival: None - Clinical Impression Clinical Impression: Paresthesia, Numbness on left side Decision To Admit - Pt Status Changed To: Hospital Disposition Of: Inpatient - Admit Certification Admit to Inpatient:: After my assessment, the patient will require hospitalization for at least two midnights. This is because of the severity of symptoms shown, intensity of services needed, and/or the medical risk in this patient being treated as an outpatient. - InPatient: Physician Admission Certification: I certify that this patient requires 2 or more midnights of care for the following reason:: After my assessment, the patient will require hospitalization for at least two midnights. This is because of the severity of symptoms shown, intensity of services needed, and/or the medical risk in this patient being treated as an outpatient. - . Bed Request Type: Telemetry Admitting Physician: Jalen Hernandez Patient Diagnosis: Paresthesia, Numbness on left side
[2018-05-15 02:21] LABS: BASO % 0.9 % (0.0-2.0); EOS # 0.3 K/uL (0.0-0.7); EOS % 4.4 % (0.0-4.0); HEMOGLOBIN 14.5 g/dL (12.0-18.0); LYMPH # 2.6 K/uL (1.0-4.3); LYMPH % 44.2 % (20.0-40.0); MEAN CELL VOLUME 93.3 fL (80.0-94.0); MEAN CORPUSCULAR HEMOGLOBIN 30.8 pg (27.0-31.0); MEAN PLATELET VOLUME 6.9 fL (7.2-11.7); MONO # 0.7 K/uL (0.0-0.8); MONO % 12.6 % (0.0-10.0); NEUT # 2.2 K/uL (1.8-7.0); NEUT % 37.9 % (50.0-75.0); RBC 4.7 Mil/uL (4.40-5.90); RED CELL DISTRIBUTION WIDTH 13.6 % (11.5-14.5); WHITE BLOOD COUNT 5.8 K/uL (4.8-10.8)
[2018-05-15 02:35] LABS: INR 1.1; PROTHROMBIN TIME 11.6 SECONDS (9.7-12.2)
[2018-05-15 02:45] LABS: ALB/GLOB RATIO 1.4 (1.0-2.1); ALBUMIN 4.8 g/dL (3.5-5.0); ALT/SGPT 24 U/L (21-72); AST/SGOT 46 U/L (17-59); BLOOD UREA NITROGEN 17 mg/dL (9-20); CALCIUM 8.8 mg/dl (8.6-10.4); GFR NON-AFRICAN AMERICAN > 60; HDL CHOLESTEROL 36 mg/dL (30-70)
[2018-05-15 02:56] LABS: LDL CHOLESTEROL 114 mg/dL (0-129)
[2018-05-15] MEDS ORDERED: Iodixanol 320 MG/ML 200 ML BOTTLE IV ONE (05:37)
[2018-05-15] MEDS ORDERED: Diclofenac Sodium Delayed Release 50 mg EC Tab PO SCH (05:45)
[2018-05-15] MEDS: Oxycodone/Acetaminophen 5/325 mg Tab PO PRN ×2 (07:28→15:18)
--- NOTE | 2018-05-15 09:45 | CP.PCM.CON ---
<Beck Royal - Last Filed: 05/15/18 16:20> History of Present Illness - History of Present Illness History of Present Illness: PGY-[address] [place] [address] Alarcon Patient is a 42 year old male with no significant PMHx who presents complaining of several weeks of primarily left-sided neurological complaints including left- sided numbness, paresthesias, weakness, and shooting pains. He states he has been having these symptoms for several weeks, but symptoms came back much stronger just prior to coming in overnight and continue to persist at this time. In addition, patient states that when he came in he was having palpitations, and has had a severe occipital headache with blurred vision. Patient has never experienced these symptoms in the past since they began recently. Patient denies any recent international travel. Denies any known bug bites. Patient denies any recent viral-type illness or sick contacts. He denies any recent heavy lifting and cannot recall any inciting event, has no history of herniated disc. PMHx: No known significant Surgical history: Nasal polypectomy, derm removal of skin lesion on back Allergies: Ibuprofen, naproxen (rash to both, non-anaphylactic) Medications: No home meds Social history: Never smoker, occasional social alcohol use, denies illicit drug use. Works in IT. Family hx: multiple family members with DM Review of Systems - Constitutional Constitutional: absent: Fatigue, Fever - Cardiovascular Cardiovascular: absent: Chest Pain, Edema - Respiratory Respiratory: absent: Cough, Dyspnea, Wheezing - Gastrointestinal Gastrointestinal: absent: Constipation, Diarrhea, Nausea, Vomiting - Genitourinary Genitourinary: absent: Dysuria, Flank Pain - Musculoskeletal Musculoskeletal: Muscle Weakness (reports questionable left-sided weakness (states difficulty walking, unsure if due to weakness vs sensory changes)). absent: Neck Pain, Stiffness - Neurological Neurological: Numbness, Focal Weakness (reports questionable left-sided weakness (states difficulty walking, unsure if due to weakness vs sensory changes)), Headaches, Sensory Deficit. absent: Abnormal Hearing, Abnormal Speech, Convulsions, Dizziness, Loss of Vision Additional comments: See HPI for details - Psychiatric Psychiatric: absent: Anxiety, Depression - Hematologic/Lymphatic Hematologic: absent: Easy Bleeding, Easy Bruising Past Patient History - Infectious Disease Hx of Infectious Diseases: None - Past Medical History & Family History Past Medical History?: Yes - Past Social History Smoking Status: Never Smoked - CARDIAC Hx Cardiac Disorders: No - PULMONARY Hx Respiratory Disorders: No - NEUROLOGICAL Hx Neurological Disorder: No - HEENT Hx HEENT Problems: No - RENAL Hx Chronic Kidney Disease: No - ENDOCRINE/METABOLIC Hx Endocrine Disorders: No - HEMATOLOGICAL/ONCOLOGICAL Hx Blood Disorders: No - INTEGUMENTARY Hx Dermatological Problems: No - MUSCULOSKELETAL/RHEUMATOLOGICAL Hx Falls: Yes - GENITOURINARY/GYNECOLOGICAL Hx Genitourinary Disorders: No - PSYCHIATRIC Hx Substance Use: No - SURGICAL HISTORY Hx Surgeries: Yes Other/Comment: Dental surgery , nasal surgery, sinus surgery,Polyps Removed. - ANESTHESIA Hx Anesthesia: Yes Hx Anesthesia Reactions: No Hx Malignant Hyperthermia: No Has any member of the family had a problem w/ anesthesia?: No Meds Allergies/Adverse Reactions: Allergies Allergy/AdvReac Type Severity Reaction Status Date / Time ibuprofen Allergy RASH Verified 05/26/18 02:10 naproxen sodium [From Aleve] Allergy RASH Verified 05/26/18 02:10 - Medications Medications: Current Medications Aspirin (Aspirin) 325 mg PO DAILY [facility] Clopidogrel Bisulfate (Plavix) 75 mg PO DAILY [facility] Enoxaparin Sodium (Lovenox) 40 mg SC DAILY [facility] Lorazepam (Ativan) 1 mg IVP ONCE ONE Stop: 05/15/18 16:01 Oxycodone/Acetaminophen (Percocet 5/325 Mg Tab) 1 tab PO Q6H PRN PRN Reason: Pain, moderate (4-7) Stop: 05/18/18 07:21 Last Admin: 05/15/18 07:28 Dose: 1 tab Pantoprazole Sodium (Protonix Ec Tab) 40 mg PO DAILY [facility] Pneumococcal Polyvalent Vaccine (Pneumovax 23 Vaccine) 0.5 ml IM .ONCE ONE Stop: 05/18/18 10:01 Rosuvastatin Calcium (Crestor) 10 mg PO HS [facility] Physical Exam - Constitutional Appears: Non-toxic, No Acute Distress - Head Exam Head Exam: ATRAUMATIC, NORMOCEPHALIC - Eye Exam Eye Exam: EOMI, Normal appearance - ENT Exam ENT Exam: Mucous Membranes Moist - Respiratory Exam Respiratory Exam: Rales, Rhonchi, Wheezes. absent: Respiratory Distress - Cardiovascular Exam Cardiovascular Exam: REGULAR RHYTHM, +S1, +S2 - GI/Abdominal Exam GI & Abdominal Exam: Normal Bowel Sounds, Soft. absent: Tenderness - Extremities Exam Extremities exam: Negative for: pedal edema, tenderness - Neurological Exam Neurological exam: Alert, CN II-XII Intact, Oriented x3 Additional comments: decreased sensation on left. decreased sensation on left. 5/5 muscle strength throughout. 3+ patellar reflexes on left, 2+ on right. Normal babinsky. Normal finger to nose. No pronator drift. Proprioception intact. - Psychiatric Exam Psychiatric exam: Normal Affect, Normal Mood - Skin Skin Exam: Dry, Intact, Normal Color Results - Vital Signs Recent Vital Signs: Last Vital Signs Temp 98.2 F 05/15/18 08:00 Pulse 75 05/15/18 08:00 Resp 20 05/15/18 08:00 BP 135/89 05/15/18 08:00 Pulse Ox 97 05/15/18 08:00 - Labs Result Diagrams: 05/15/18 02:15 05/15/18 02:15 Labs: Laboratory Results - last 24 hr 05/15/18 05/15/18 05/15/18 01:54 02:15 02:15 WBC 5.8 RBC 4.70 Hgb 14.5 Hct 43.8 MCV 93.3 D MCH 30.8 MCHC 33.0 RDW 13.6 Plt Count 298 MPV 6.9 L Neut % (Auto) 37.9 L Lymph % (Auto) 44.2 H [place] % (Auto) 12.6 H Eos % (Auto) 4.4 H Baso % (Auto) 0.9 Neut # (Auto) 2.2 Lymph # (Auto) 2.6 [place] # (Auto) 0.7 Eos # (Auto) 0.3 Baso # (Auto) 0.0 PT 11.6 INR 1.1 APTT 36 H Sodium Potassium Chloride Carbon Dioxide Anion Gap BUN Creatinine Est GFR ( Amer) Est GFR (Non-Af Amer) POC Glucose (mg/dL) 110 Random Glucose Hemoglobin A1c Calcium Total Bilirubin AST ALT Alkaline Phosphatase Troponin I Total Protein Albumin Globulin Albumin/Globulin Ratio Triglycerides Cholesterol LDL Cholesterol Direct HDL Cholesterol Blood Type Antibody Screen 05/15/18 05/15/18 05/15/18 02:15 02:15 02:15 WBC RBC Hgb Hct MCV MCH MCHC RDW Plt Count MPV Neut % (Auto) Lymph % (Auto) [place] % (Auto) Eos % (Auto) Baso % (Auto) Neut # (Auto) Lymph # (Auto) [place] # (Auto) Eos # (Auto) Baso # (Auto) PT INR APTT Sodium 138 Potassium 3.9 Chloride 102 Carbon Dioxide 25 Anion Gap 16 BUN 17 Creatinine 0.7 L Est GFR ( Amer) > 60 Est GFR (Non-Af Amer) > 60 POC Glucose (mg/dL) Random Glucose 94 Hemoglobin A1c 5.5 Calcium 8.8 Total Bilirubin 0.4 AST 46 ALT 24 Alkaline Phosphatase 92 Troponin I < 0.0120 Total Protein 8.3 Albumin 4.8 Globulin 3.4 Albumin/Globulin Ratio 1.4 Triglycerides 387 H Cholesterol 204 H LDL Cholesterol Direct 114 HDL Cholesterol 36 Blood Type A POSITIVE Antibody Screen Negative Assessment & Plan - Assessment and Plan (Free Text) Assessment: Patient is a 42 year old male with no significant PMHx who presents with left- sided numbness, decreased sensation, shooting pains, and parasthesias, as well as painful occipital headaches. Suspect left-sided symptomatology likely represents complicated migraines and not CVA, however we must rule out the possibility of acute stroke. Left-sided numbness and parasthesias, suspect complicated migraine but r/o CVA Meds -Gabapentin 300 mg PO TID for neuropathic pain Imaging CT head w/o contrast 05/15: No evidence of acute infarct. No intracranial mass or hemorrhage. Chronic pansinusitis. Evidence of prior sinus surgery CT angio of the head and neck 05/15: Unremarkable CT Angiography of the Brain and Neck. -MRI brain without contrast - f/u --If negative, will obtain MRI of the cervical spine --If both MRIs negative (or no pathology requiring acute intervention), patient can be discharged home with Rx for Gabapenting and Neuro follow up. -We will follow up imaging results and continue to follow patient Assessment and plan discussed with Dr. Dorian Royal, PGY-1 <Axel Alarcon - Last Filed: 05/27/18 14:43> Results - Vital Signs Recent Vital Signs: Last Vital Signs Temp 98 F 05/15/18 15:32 Pulse 62 05/15/18 20:00 Resp 20 05/15/18 20:00 BP 128/84 05/15/18 20:00 Pulse Ox 96 05/15/18 15:32 - Labs Result Diagrams: 05/15/18 02:15 05/15/18 02:15 Attending/Attestation - Attestation I have personally seen and examined this patient.: Yes I have fully participated in the care of the patient.: Yes I have reviewed all pertinent clinical information: Yes Notes (Text): I agree with the assessment and plan. Will follow imaging and make recommendations.
[2018-05-15] MEDS ORDERED: Enoxaparin 40 mg Syringe SC SCH (10:00)
[2018-05-15] MEDS ORDERED: Pantoprazole 40 mg EC Tab PO SCH (10:00)
--- NOTE | 2018-05-15 10:02 | CT ---
Date of service: 05/15/2018 PROCEDURE: CT HEAD WITHOUT CONTRAST. HISTORY: code stroke bed 5 COMPARISON: 11/23/2017 TECHNIQUE: Axial computed tomography images were obtained through the head/brain without intravenous contrast. Radiation dose: Total exam DLP = 1114.32 mGy-cm. This CT exam was performed using one or more of the following dose reduction techniques: Automated exposure control, adjustment of the mA and/or kV according to patient size, and/or use of iterative reconstruction technique. FINDINGS: HEMORRHAGE: No intracranial hemorrhage. BRAIN: No mass effect or edema. No atrophy or chronic microvascular ischemic changes. VENTRICLES: Unremarkable. No hydrocephalus. CALVARIUM: Unremarkable. PARANASAL SINUSES: Chronic pansinusitis. Status post prior sinus surgery with medial antrectomy and resection of sphenoid ethmoidal recesses. MASTOID AIR CELLS: Unremarkable as visualized. No inflammatory changes. OTHER FINDINGS: None. IMPRESSION: No evidence of acute infarct. No intracranial mass or hemorrhage. Chronic pansinusitis. Evidence of prior sinus surgery The preliminary findings for this examination were reported by [facility] at 2:26 a.m. on 05/15/2018. There is concurrence of this report with the preliminary findings.
--- NOTE | 2018-05-15 10:18 | CT ---
Date of service: 05/15/2018 PROCEDURE: CT Angiography of the Brain and Neck. HISTORY: left sided numbness COMPARISON: None available. TECHNIQUE: CT angiography of the head and neck was performed following intravenous contrast administration. Coronal and sagittal maximum intensity projection reformatted images were generated. Contrast Dose: Visipaque 320, 100 cc Radiation dose: Total exam DLP = 542.03 mGy-cm. This CT exam was performed using one or more of the following dose reduction techniques: Automated exposure control, adjustment of the mA and/or kV according to patient size, and/or use of iterative reconstruction technique. FINDINGS: INTERNAL CEREBRAL ARTERIES: Unremarkable. The skull base, petrous, cavernous and supraclinoid segments are bilaterally widely patent. ANTERIOR CEREBRAL ARTERIES: Unremarkable. A1 and A2 segments are widely patent. Smaller distal branches unremarkable, as visualized. MIDDLE CEREBRAL ARTERIES: Unremarkable. M1 and M2 segments are widely patent. Perisylvian branches grossly symmetric. POSTERIOR CIRCULATION: Basilar Artery: Unremarkable. Distal Vertebral Arteries: Unremarkable. Posterior Cerebral Arteries: Unremarkable. Posterior Inferior Cerebellar Arteries: Unremarkable. 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 Common Carotid arteries: The bilateral common carotid appear widely patent from their origins to their bifurcations with no significant stenosis appreciated. No evidence to suggest common carotid artery dissection. Internal Carotid arteries: No significant stenosis is appreciated throughout the cervical internal carotid artery segments bilaterally and there is no evidence of dissection either. External Carotid arteries: Appear unremarkable bilaterally. Vertebral arteries: The bilateral vertebral arteries appear normal in caliber from their origins to their distal cervical segments. No significant stenosis or definite pattern of dissection. ANEURYSM/ VASCULAR MALFORMATIONS: None. OTHER FINDINGS: None. IMPRESSION: Unremarkable CT Angiography of the Brain and Neck. Concordant preliminary report from [facility], 05/15/2018, 2:43 a.m..
--- NOTE | 2018-05-15 11:09 | RAD ---
Chest x-ray single frontal view HISTORY: Code stroke. Comparison: 11/23/2017 Findings: No focal infiltrate or effusion. Heart size within normal limits. Impression: No focal infiltrate or effusion.
[2018-05-15 13:41] LABS: BARBITURATES, UR NEGATIVE (NEGATIVE); BENZODIAZEPINES, UR NEGATIVE (NEGATIVE); OPIATES, UR NEGATIVE (NEGATIVE); PHENCYCLIDINE, UR NEGATIVE (NEGATIVE)
--- NOTE | 2018-05-15 13:46 | CARD ---
APPROVED REPORT Date of service: 05/15/2018 EXAM: Two-dimensional and M-mode echocardiogram with Doppler and color Doppler. Other Information Quality : GoodRhythm : 2D DIMENSIONS IVSd0.6 (0.7-1.1cm)LVDd5.2 (3.9-5.9cm) PWd0.9 (0.7-1.1cm)LA Yiavce29 (18-58mL) LVDs3.5 (2.5-4.0cm)FS (%) 32.9 % LVEF (%)61.0 (>50%)LVEF (Michele's)62.68 % M-Mode DIMENSIONS Left Atrium (MM)3.25 (2.5-4.0cm)IVSd0.76 (0.7-1.1cm) Aortic Root3.68 (2.2-3.7cm)LVDd5.32 (4.0-5.6cm) Aortic Cusp Exc.2.51 (1.5-2.0cm)PWd0.78 (0.7-1.1cm) FS (%) 38 %LVDs3.31 (2.0-3.8cm) LVEF (%)68 (>50%) Mitral Valve MV E Ezzrpbnk07.6cm/sMV A Bqfmgcgd81.7cm/sE/A ratio1.5 TDI Lateral E' Peak V9.97cm/sMedial E' Peak V6.87cm/sE/Lateral E'7.7 E/Medial E'11.1 Tricuspid Valve TR Peak Etpbptbo723sp/sTR Peak Gr.8bcNzKPVD53kfIl <Conclusion> normal size la,lv & ra rv. normal lv wall motion,thickness,systolic & diastolic function with lvef of 60-65%. normal aortic,mitral,tv & pv. trace mr,tr & pi. normal size ivc & aortic root. no pericardial effusion.
--- NOTE | 2018-05-15 16:29 | CON ---
DATE: 05/15/2018 HISTORY OF PRESENT ILLNESS: The patient is a 42-year-old male who has no significant past medical history, presented because of left-sided numbness, headache following repeated palpitation. The patient was weak in many of his answers and was asked about incidents of fainting in the past. After he denied having them, he stated he had many of them. The patient at this time denies any numbness, speech difficulty, headache, or blurry vision, and denies any dizziness. The patient denies any chest pain or palpitation at the time of my evaluation. SOCIAL HISTORY: The patient is nonsmoker. He works in IT. MEDICATIONS: Aspirin 325 mg once a day, Ativan 1 mg intravenously given as a single dose, Crestor 10 mg once a day, Lovenox 40 mg subcutaneous once a day, and Plavix 75 mg once a day. REVIEW OF SYSTEMS: No nausea or vomiting. No fever or chills. No diarrhea. PHYSICAL EXAMINATION: GENERAL: The patient is a middle-aged male who does not appear to be in any distress. VITAL SIGNS: Blood pressure 135/89, heart rate 75, temperature 98.2, respirations 20. HEENT: Normocephalic. CHEST: Clear. HEART: S1, S2, regular. EXTREMITIES: No edema. LABORATORY DATA: SMA-7 is within normal limits except for creatinine 0.7. Troponin is within normal limit. Triglycerides 387 and total cholesterol is 294, both are elevated. INR is 1.1, PTT 36. Hemoglobin, hematocrit, white count, and platelet count are within normal limits. Urine drug screen is positive for cannabinoids. EKG revealed normal sinus rhythm. Head CT scan without contrast, no evidence of acute infarct. Chronic pansinusitis. Head and neck CT angio was unremarkable. Echocardiographic study revealed normal left ventricular size and systolic function. ASSESSMENT: 1. Rule out transient ischemia attack. 2. Cannabinoid abuse. 3. Hyperlipidemia. RECOMMENDATIONS: Continue current aspirin, Crestor, and Plavix therapy. No further cardiac workup is indicated at this time. The patient may be scheduled for an outpatient 24-hour Holter monitor. We will obtain TSH level prior to discharge. The patient can be discharged from the cardiac point of view at this point. Sunny Padilla MD [facility] # [id number]
[2018-05-15 16:33] VITALS: TEMP 98; O2SAT 96
--- NOTE | 2018-05-15 18:18 | CP.PCM.HP ---
History of Present Illness - History of Present Illness History of Present Illness: 42-year-old male patient with past medical history of seizure presents to ED with left side numbness. As per patient he had dinner around 6-7 and went home when the symptoms started. no slurred speech or weakness. no history of fever, chills, N/V/D , trauma or injury. Present on Admission - Present on Admission Any Indicators Present on Admission: No Past Patient History - Infectious Disease Hx of Infectious Diseases: None - Past Medical History & Family History Past Medical History?: Yes - Past Social History Smoking Status: Never Smoked - CARDIAC Hx Cardiac Disorders: No - PULMONARY Hx Respiratory Disorders: No - NEUROLOGICAL Hx Neurological Disorder: No - HEENT Hx HEENT Problems: No - RENAL Hx Chronic Kidney Disease: No - ENDOCRINE/METABOLIC Hx Endocrine Disorders: No - HEMATOLOGICAL/ONCOLOGICAL Hx Blood Disorders: No - INTEGUMENTARY Hx Dermatological Problems: No - MUSCULOSKELETAL/RHEUMATOLOGICAL Hx Falls: Yes - GENITOURINARY/GYNECOLOGICAL Hx Genitourinary Disorders: No - PSYCHIATRIC Hx Substance Use: No - SURGICAL HISTORY Hx Surgeries: Yes Other/Comment: Dental surgery , nasal surgery, sinus surgery,Polyps Removed. - ANESTHESIA Hx Anesthesia: Yes Hx Anesthesia Reactions: No Hx Malignant Hyperthermia: No Has any member of the family had a problem w/ anesthesia?: No Meds Allergies/Adverse Reactions: Allergies Allergy/AdvReac Type Severity Reaction Status Date / Time ibuprofen Allergy RASH Verified 05/26/18 02:10 naproxen sodium [From Aleve] Allergy RASH Verified 05/26/18 02:10 Physical Exam - Constitutional Appears: Well - Head Exam Head Exam: ATRAUMATIC, NORMAL INSPECTION, NORMOCEPHALIC - Eye Exam Eye Exam: EOMI, Normal appearance, PERRL Pupil Exam: NORMAL ACCOMODATION, PERRL - ENT Exam ENT Exam: Mucous Membranes Moist, Normal Exam - Neck Exam Neck exam: Positive for: Normal Inspection - Respiratory Exam Respiratory Exam: Decreased Breath Sounds - Cardiovascular Exam Cardiovascular Exam: REGULAR RHYTHM, +S1, +S2 - GI/Abdominal Exam GI & Abdominal Exam: Diminished Bowel Sounds, Soft - Rectal Exam Rectal Exam: Deferred Results - Vital Signs Recent Vital Signs: Last Vital Signs Temp 98 F 05/15/18 15:32 Pulse 66 05/15/18 15:32 Resp 18 05/15/18 15:32 BP 155/88 H 05/15/18 15:32 Pulse Ox 96 05/15/18 15:32 - Labs Result Diagrams: 05/15/18 02:15 05/15/18 02:15 Labs: Laboratory Results - last 24 hr 05/15/18 05/15/18 05/15/18 01:54 02:15 02:15 WBC 5.8 RBC 4.70 Hgb 14.5 Hct 43.8 MCV 93.3 D MCH 30.8 MCHC 33.0 RDW 13.6 Plt Count 298 MPV 6.9 L Neut % (Auto) 37.9 L Lymph % (Auto) 44.2 H [place] % (Auto) 12.6 H Eos % (Auto) 4.4 H Baso % (Auto) 0.9 Neut # (Auto) 2.2 Lymph # (Auto) 2.6 [place] # (Auto) 0.7 Eos # (Auto) 0.3 Baso # (Auto) 0.0 PT 11.6 INR 1.1 APTT 36 H Sodium Potassium Chloride Carbon Dioxide Anion Gap BUN Creatinine Est GFR ( Amer) Est GFR (Non-Af Amer) POC Glucose (mg/dL) 110 Random Glucose Hemoglobin A1c Calcium Total Bilirubin AST ALT Alkaline Phosphatase Troponin I Total Protein Albumin Globulin Albumin/Globulin Ratio Triglycerides Cholesterol LDL Cholesterol Direct HDL Cholesterol Urine Opiates Screen Urine Methadone Screen Ur Barbiturates Screen Ur Phencyclidine Scrn Ur Amphetamines Screen U Benzodiazepines Scrn U Oth Cocaine Metabols U Cannabinoids Screen Blood Type Antibody Screen 05/15/18 05/15/18 05/15/18 02:15 02:15 02:15 WBC RBC Hgb Hct MCV MCH MCHC RDW Plt Count MPV Neut % (Auto) Lymph % (Auto) [place] % (Auto) Eos % (Auto) Baso % (Auto) Neut # (Auto) Lymph # (Auto) [place] # (Auto) Eos # (Auto) Baso # (Auto) PT INR APTT Sodium 138 Potassium 3.9 Chloride 102 Carbon Dioxide 25 Anion Gap 16 BUN 17 Creatinine 0.7 L Est GFR ( Amer) > 60 Est GFR (Non-Af Amer) > 60 POC Glucose (mg/dL) Random Glucose 94 Hemoglobin A1c 5.5 Calcium 8.8 Total Bilirubin 0.4 AST 46 ALT 24 Alkaline Phosphatase 92 Troponin I < 0.0120 Total Protein 8.3 Albumin 4.8 Globulin 3.4 Albumin/Globulin Ratio 1.4 Triglycerides 387 H Cholesterol 204 H LDL Cholesterol Direct 114 HDL Cholesterol 36 Urine Opiates Screen Urine Methadone Screen Ur Barbiturates Screen Ur Phencyclidine Scrn Ur Amphetamines Screen U Benzodiazepines Scrn U Oth Cocaine Metabols U Cannabinoids Screen Blood Type A POSITIVE Antibody Screen Negative 05/15/18 12:15 WBC RBC Hgb Hct MCV MCH MCHC RDW Plt Count MPV Neut % (Auto) Lymph % (Auto) [place] % (Auto) Eos % (Auto) Baso % (Auto) Neut # (Auto) Lymph # (Auto) [place] # (Auto) Eos # (Auto) Baso # (Auto) PT INR APTT Sodium Potassium Chloride Carbon Dioxide Anion Gap BUN Creatinine Est GFR ( Amer) Est GFR (Non-Af Amer) POC Glucose (mg/dL) Random Glucose Hemoglobin A1c Calcium Total Bilirubin AST ALT Alkaline Phosphatase Troponin I Total Protein Albumin Globulin Albumin/Globulin Ratio Triglycerides Cholesterol LDL Cholesterol Direct HDL Cholesterol Urine Opiates Screen Negative Urine Methadone Screen Negative Ur Barbiturates Screen Negative Ur Phencyclidine Scrn Negative Ur Amphetamines Screen Negative U Benzodiazepines Scrn Negative U Oth Cocaine Metabols Negative U Cannabinoids Screen Positive H Blood Type Antibody Screen Assessment & Plan (1) Abdominal pain Status: Acute (2) Acute renal insufficiency Status: Acute (3) Back pain Status: Acute (4) Contusion Status: Acute (5) Diarrhea Status: Acute (6) Enteritis Status: Acute (7) Facial pain Status: Acute (8) Flank pain Status: Acute (9) Gastritis Status: Acute (10) Gastroenteritis Status: Acute (11) Generalized weakness Status: Acute (12) Headache Status: Acute (13) Hematuria Status: Acute (14) Hydrocele Status: Acute (15) Knee pain Status: Acute (16) Left groin pain Status: Acute (17) Left testicular pain Status: Acute (18) Leg pain Status: Acute (19) Multiple contusions Status: Acute (20) Muscle spasm Status: Acute (21) Musculoskeletal pain Status: Acute (22) Nasal fracture Status: Acute (23) Nasal polyp Status: Acute (24) Numbness on left side Status: Acute (25) Paresthesia Status: Acute (26) Rib fracture Status: Acute (27) Scalp pain Status: Acute (28) Sinus pain Status: Acute (29) Sinusitis Status: Acute (30) Syncope Status: Acute (31) Thoracic back pain Status: Acute (32) Varicocele Status: Acute - Assessment and Plan (Free Text) Plan: Patient seen and examined at bedside Order CBC and CMP Order EKG Order CXR Other management as ordered
[2018-05-16 00:53] VITALS: BP 128/84; PULSE 62; RESP 20
[2018-05-18] MEDS ORDERED: Pneumococcal 23-Valent Vaccine IM ONE (10:00)
--- NOTE | 2018-05-20 23:54 | CARD ---
APPROVED REPORT Date of service: 05/15/2018 EKG Measurement Heart [id number] <Conclusion> Normal sinus rhythm Normal ECG
== END 2018-05-15 23:22 | disposition left against medical advice (07) ==
LOC: C.ER 01:44 → INTOOBSV 03:53 → C.6T 03:53
PROVIDERS: ADMIT Internal Medicine Nephrology; ATTEND Internal Medicine Nephrology
DX: R20.2 Paresthesia of skin (principal); G43.109 Migraine with aura, not intractable, without status migrainosus; J32.4 Chronic pansinusitis; E78.5 Hyperlipidemia, unspecified; F12.10 Cannabis abuse, uncomplicated; Z83.3 Family history of diabetes mellitus
CPT/HCPCS: 70450; 70496; 70498; 71045; 80053; 80061; 80324; 80345; 80346; 80349; 80353; 80358; 80361; 82948; 83036; 83992; 84484; 85025; 85610; 85730; 86850; 86900; 93005; 93306; 96372; 97116; 97162; 97165; 97530; 99285; G0378; G8978; G8979; G8987; G8988; G8989; J1650; Q9966

== ENCOUNTER 2018-05-26 01:57 | Emergency (ER) | payer MEDICAID, OTHER ==
[2018-05-26 01:57] VITALS: BMI 23.6
--- NOTE | 2018-05-26 02:13 | C.PDOC ---
History Of Present Illness 42 year old male, whose past medical history includes kidney stones and anxiety, presents to the ED for evaluation of right-sided mid-back pain which began one day ago. Patient states the pain radiates around his right flank region. He states the pain is worse with bending and with twisting. Patient took Tylenol and Flexeril this morning without relief. He was seen in [place] ED around two hours prior to arrival, where he underwent bloodwork and CT scan which were both unremarkable aside from some mild constipation. Patient states he was unsatisfied with his care, so he decided to come here. 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 Of note, pt was admitte[facility] to [facility] on 05/15/17 for left sided numbness and paresthesias. Pt had negative head CT and CTA but left AMA before an MRI could be completed. Pt admits to resolution of those symptoms. He denies fever, chills, shortness of breath, chest pain, abdominal pain, nausea, vomiting, di arrhea, cough, bowel/bladder incontinence, saddle anesthesia, headache, or testicular pain, redness or swelling, or recent trauma/injury. Time Seen by Provider: 05/26/18 02:10 Chief Complaint (Nursing): Male Genitourinary History Per: Patient History/Exam Limitations: no limitations Onset/Duration Of Symptoms: Hrs Current Symptoms Are (Timing): Still Present Quality Of Discomfort: "Pain" Associated Symptoms: Back Pain (right-sided, mid-back ). denies: Fever, Chills, Nausea, Vomiting, Diarrhea, Urinary Symptoms Additional History Per: Patient Past Medical History Reviewed: Historical Data, Nursing Documentation, Vital Signs Vital Signs: Last Vital Signs Temp 97.8 F 05/26/18 02:06 Pulse 80 05/26/18 02:06 Resp 14 05/26/18 02:06 BP 164/94 H 05/26/18 02:06 Pulse Ox 99 05/26/18 02:06 - Medical History PMH: Seizures Denies: Chronic Kidney Disease Surgical History: No Surg Hx Family History: States: Unknown Family Hx - Social History Hx Tobacco Use: No Hx Alcohol Use: No Hx Substance Use: No - Immunization History Hx Tetanus Toxoid Vaccination: No Hx Influenza Vaccination: No Hx Pneumococcal Vaccination: No Review Of Systems Constitutional: Negative for: Fever, Chills Eyes: Negative for: Vision Change ENT: Negative for: Throat Pain, Throat Swelling Cardiovascular: Negative for: Chest Pain, Palpitations, Light Headedness Respiratory: Negative for: Cough, Shortness of Breath Gastrointestinal: Negative for: Nausea, Vomiting, Abdominal Pain, Diarrhea Genitourinary: Negative for: Dysuria, Frequency, Incontinence, Hematuria, Penile Discharge, Scrotal Pain, Penile Pain, Other (testicular pain, redness, swelling ) Musculoskeletal: Positive for: Back Pain (right-sided, mid-back ). Negative for: Neck Pain Skin: Negative for: Rash Neurological: Negative for: Weakness, Numbness, Headache, Dizziness Physical Exam - Physical Exam Appears: Well, Non-toxic, No Acute Distress Skin: Normal Color, Warm, Dry, No Ecchymosis, No Other (erythema or skin changes to back ) Head: Atraumatic, Normacephalic Eye(s): bilateral: Normal Inspection, PERRL, EOMI Nose: Normal Oral Mucosa: Moist Neck: Normal, Normal ROM, No Midline Cervical Tenderness, No Paracervical Tenderness, Supple, No Other (no meningeal signs) Chest: Symmetrical, No Deformity, No Tenderness Cardiovascular: Rhythm Regular, No Murmur Respiratory: Normal Breath Sounds, No Rales, No Rhonchi, No Wheezing Gastrointestinal/Abdominal: Bowel Sounds (normoactive), Soft, No Tenderness, No Guarding, No Rebound Back: Normal Inspection, No CVA Tenderness, No Vertebral Tenderness, No Decreased ROM, Muscle Spasm (right thoracic ), Paraspinal Tenderness (right- sided, thoracic ) Extremity: Normal ROM, Capillary Refill (less than 2 seconds ) Extremity: Bilateral: Atraumatic, Normal Color And Temperature, Normal ROM Pulses: Left Radial: Normal, Right Radial: Normal Neurological/Psych: Oriented x3, Normal Speech, Normal Cognition, Normal Motor (strength 5/5 bilaterally), Normal Sensation (sensation intact bilaterally) Gait: Steady ED Course And Treatment O2 Sat by Pulse Oximetry: 99 (on RA) Pulse Ox Interpretation: Normal Medical Decision Making Medical Decision Making: Patient very uncooperative and agitated during ED visit, requesting narcotic pain medication. Progress: CXR ordered and reviewed. Lidoderm patch On initial exam, patient is very well appearing in no acute distress. Pt is tender to palpation over thoracic paraspinal muscles on the right, admits that pain worsens on movement. Suspicious for msk pain. No CVA tenderness. No urinary complaints. Labwork and CT reviewed from [place] ED visit today, Unremarkable. No indication for repeat labwork. Will get CXR to r/o pneumothorax or lung pathology. Patient given paper copies of lab results from [place] ED visit, reviewed lab work with patient thoroughly. Advised to followup with urology and orthopedics and PMD. Pt verbalizes understanding. CXR shows no active disease, rib fractures, or pneumothorax as read by me. Educated patient that he needs to fill his prescriptions given to him from [place] ED. Provided patient with a list of 24hour pharmacies. Pt verbalized understanding and states he will fill the prescriptions and followup as instructed. Diagnostic testing results and plan of care discussed with patient. Strict instructions given regarding prescription use, importance of followup, and signs/symptoms to return to ER including difficulty breathing, chest pain, or any other new/worsening symptoms. Pt verbalized understanding of discussion. Patient is A&Ox3, ambulating with steady gait, with vital signs stable for discharge. Disposition - Disposition Referrals: Wilberto Ramos MD [Staff Provider] - Mark Mitchell Jr., MD [Staff Provider] - Disposition: HOME/ ROUTINE Disposition Time: 03:45 Condition: GOOD Additional Instructions: Take medication as prescribed Followup with primary doctor or clinic within 2 days Return to ER with any new/worsening symptoms Instructions: Muscle Strain Forms: General Discharge Instructions, [facility] (Wolof), Work Excuse - Clinical Impression Clinical Impression: Muscle spasm, Back pain - PA / FIELD SERVICES DIRECTOR / Resident Statement MD/DO has reviewed & agrees with the documentation as recorded. - Scribe Statement The provider has reviewed the documentation as recorded by the Scribe (Padmini Hernandez) All medical record entries made by the Scribe were at my direction and personally dictated by me. I have reviewed the chart and agree that the record accurately reflects my personal performance of the history, physical exam, medical decision making, and the department course for this patient. I have also personally directed, reviewed, and agree with the discharge instructions and disposition.
[2018-05-26 02:16] VITALS: O2SAT 99
[2018-05-26] MEDS ORDERED: Lidocaine 5% Patch TD STA (02:50)
[2018-05-26] MEDS ORDERED: Lidocaine 5% Patch TD ONE (03:03)
[2018-05-26 03:47] VITALS: BP 128/76; PULSE 78; RESP 16; TEMP 97.6
--- NOTE | 2018-05-26 10:03 | RAD ---
Date of service: 05/26/2018 HISTORY: cough, right sided pain COMPARISON: Portable chest 05/15/2018. TECHNIQUE: Chest PA and lateral FINDINGS: LUNGS: No active pulmonary disease. PLEURA: No significant pleural effusion identified. No pneumothorax apparent. CARDIOVASCULAR: No aortic atherosclerotic calcification present. Normal cardiac size. No pulmonary vascular congestion. OSSEOUS STRUCTURES: No significant abnormalities. VISUALIZED UPPER ABDOMEN: Normal. OTHER FINDINGS: None. IMPRESSION: No interval acute cardiopulmonary disease appreciated.
== END 2018-05-26 03:48 | disposition home or self-care (01) ==
LOC: C.ER 01:57
DX: M54.9 Dorsalgia, unspecified (principal); M62.838 Other muscle spasm

== ENCOUNTER 2018-06-18 04:03 | Inpatient (IN) | payer MEDICAID ==
[2018-06-18 04:04] VITALS: BMI 23.6
--- NOTE | 2018-06-18 04:18 | C.PDOC ---
History Of Present Illness 42 year old male presents to the ED c/o chest discomfort that is non radiating and worsens with deep inspiration. Patient also c/o occasional left side numbness and tingling for which he was evaluated at the end of April, but eloped before full evaluation done. Patient states he is allergic to Aspirin and Ibuprofen. Patient denies fever, chills, headache, visual changes, dizziness, injury, fall, trauma, SOB, palpitations. Time Seen by Provider: 06/18/18 04:17 Chief Complaint (Nursing): Chest Pain History Per: Patient History/Exam Limitations: no limitations Onset/Duration Of Symptoms: Hrs Current Symptoms Are (Timing): Still Present Quality: "Pain" Exacerbating Factors: Deep Breathing Recent travel outside of the [place]: No Additional History Per: Patient Past Medical History Reviewed: Historical Data, Nursing Documentation, Vital Signs Vital Signs: Last Vital Signs Temp 98.6 F 06/18/18 04:11 Pulse 94 H 06/18/18 04:11 Resp 17 06/18/18 04:11 BP 147/97 H 06/18/18 04:11 Pulse Ox 99 06/18/18 04:11 - Medical History PMH: Seizures Denies: Chronic Kidney Disease Surgical History: No Surg Hx Family History: States: Unknown Family Hx - Social History Hx Tobacco Use: No Hx Alcohol Use: No Hx Substance Use: No - Immunization History Hx Tetanus Toxoid Vaccination: No Hx Influenza Vaccination: No Hx Pneumococcal Vaccination: No Review Of Systems Constitutional: Negative for: Fever, Chills Eyes: Negative for: Vision Change Cardiovascular: Positive for: Chest Pain. Negative for: Palpitations Respiratory: Negative for: Cough, Shortness of Breath Gastrointestinal: Negative for: Nausea, Vomiting, Abdominal Pain Skin: Negative for: Rash Neurological: Negative for: Weakness, Numbness, Headache, Dizziness Physical Exam - Physical Exam Appears: Non-toxic, No Acute Distress Skin: Warm, Dry Head: Normacephalic Eye(s): bilateral: Normal Inspection, PERRL, EOMI Oral Mucosa: Moist Neck: Supple Chest: Symmetrical Cardiovascular: Rhythm Regular Respiratory: No Rales, No Rhonchi, No Wheezing Gastrointestinal/Abdominal: Soft, No Tenderness, No Guarding, No Rebound Extremity: Bilateral: Atraumatic, Normal Color And Temperature, Normal ROM Neurological/Psych: Oriented x3, Normal Speech, Normal Cognition, Other (non focal) Gait: Steady ED Course And Treatment - Laboratory Results Result Diagrams: 06/18/18 04:35 06/18/18 04:35 ECG: Interpreted By Me, Viewed By Me ECG Rhythm: Sinus Rhythm (91), Nonspecific Changes O2 Sat by Pulse Oximetry: 99 (ON RA) Pulse Ox Interpretation: Normal - Radiology CXR: Interpreted by Me, Viewed By Me CXR Interpretation: No: Infiltrates, Fracture, Pnemothorax Progress Note: Plan: - EKG. - Labs. - CXR. - UA. Due to patient's allergoes no aspirin was given. NIHSS Stroke Scale - Date/Time Evaluation Performed Date Performed: 06/18/18 Time Performed: 04:35 When Was NIHSS Performed: Baseline - How Severe is the [place] Level of Consciousness: 0=Alert LOC to Questions: 0=Both comments correct LOC to commands: 0=Obeys both correctly Best Gaze: 0=Normal Visual: 0=No visual loss Facial: 0=Normal Motor Arm - Left: 0=No drift Motor Arm - Right: 0=No drift Motor Leg - Left: 0=No drift Motor Leg - Right: 0=No drift Limb Ataxia: 0=Absent Sensory: 0=Normal Best Language: 0=No aphasia Dysarthia: 0=Normal articulation Extinction & Inattention (Neglect): 0=Normal, no object Score: 0 Disposition Counseled Patient/Family Regarding: Studies Performed, Diagnosis - Disposition Disposition Time: 06:47 Condition: FAIR Forms: [facility] (Maltese) - Clinical Impression Clinical Impression: Chest pain, Paresthesia and pain of left extremity - Scribe Statement The provider has reviewed the documentation as recorded by the Scribe Tripp Walker All medical record entries made by the Scribe were at my direction and personally dictated by me. I have reviewed the chart and agree that the record accurately reflects my personal performance of the history, physical exam, medical decision making, and the department course for this patient. I have also personally directed, reviewed, and agree with the discharge instructions and disposition. Physician Patient Turnover Patient Signed Over To: Anika Ortiz Handoff Comments: pending ct head and admit
[2018-06-18 04:42] LABS: BASO % 0.8 % (0.0-2.0); EOS # 0.3 K/uL (0.0-0.7); EOS % 5.1 % (0.0-4.0); HEMOGLOBIN 14.5 g/dL (12.0-18.0); LYMPH # 2.2 K/uL (1.0-4.3); LYMPH % 41.1 % (20.0-40.0); MEAN CELL VOLUME 94.5 fL (80.0-94.0); MEAN CORPUSCULAR HEMOGLOBIN 31.3 pg (27.0-31.0); MEAN CORPUSCULAR HGB CONC 33.1 g/dL (33.0-37.0); MEAN PLATELET VOLUME 6.9 fL (7.2-11.7); MONO # 0.4 K/uL (0.0-0.8); MONO % 7.1 % (0.0-10.0); NEUT # 2.5 K/uL (1.8-7.0); NEUT % 45.9 % (50.0-75.0); RBC 4.64 Mil/uL (4.40-5.90); WHITE BLOOD COUNT 5.4 K/uL (4.8-10.8)
[2018-06-18 04:55] LABS: PROTHROMBIN TIME 11.3 SECONDS (9.7-12.2)
[2018-06-18 05:00] LABS: BLOOD UREA NITROGEN 18 mg/dL (9-20); GFR NON-AFRICAN AMERICAN > 60
[2018-06-18 05:11] LABS: B-TYPE NATRIURETIC PEPTIDE 22.1 pg/mL (0-450)
[2018-06-18 05:26] LABS: ALB/GLOB RATIO 1.4 (1.0-2.1); ALBUMIN 4.8 g/dL (3.5-5.0); ALT/SGPT 12 U/L (21-72); AST/SGOT 45 U/L (17-59)
[2018-06-18 08:17] LABS: SQUAMOUS EPITHIAL < 1 /hpf (0-5); URINE BILIRUBIN NEGATIVE (NEGATIVE); URINE BLOOD NEGATIVE (NEGATIVE); URINE CLARITY Clear (Clear); URINE COLOR Yellow (YELLOW); URINE GLUCOSE (UA) NORMAL (Normal); URINE LEUKOCYTE ESTERASE NEG Leu/uL (Negative); URINE PROTEIN NEGATIVE (NEGATIVE); URINE UROBILINOGEN NORMAL mg/dL (0.2-1.0)
[2018-06-18 09:00] LABS: BARBITURATES, UR NEGATIVE (NEGATIVE); BENZODIAZEPINES, UR NEGATIVE (NEGATIVE); OPIATES, UR NEGATIVE (NEGATIVE); PHENCYCLIDINE, UR NEGATIVE (NEGATIVE)
[2018-06-18 10:26] LABS: CK-MB 3.26 ng/mL (0.0-3.38)
--- NOTE | 2018-06-18 10:45 | CT ---
Date of service: 06/18/2018 PROCEDURE: CT HEAD WITHOUT CONTRAST. HISTORY: Left paresthesias. COMPARISON: Comparison made with CT scan of the brain 05/15/2018 TECHNIQUE: Axial computed tomography images were obtained through the head/brain without intravenous contrast. Radiation dose: Total exam DLP = 1110.14 mGy-cm. This CT exam was performed using one or more of the following dose reduction techniques: Automated exposure control, adjustment of the mA and/or kV according to patient size, and/or use of iterative reconstruction technique. FINDINGS: HEMORRHAGE: No acute parenchymal, subarachnoid or extra-axial hemorrhage. BRAIN: No mass effect or edema. No atrophy or chronic microvascular ischemic changes. VENTRICLES: No obstructive hydrocephalus however note again made of mild asymmetry of the lateral ventricles left-sided which is slightly larger than the right felt to represent an anatomic variant.. CALVARIUM: Calvarium intact PARANASAL SINUSES: Redemonstrated are extensive postoperative changes of the nasal cavity and paranasal sinuses again noted.. Interval resolution previously noted opacification changes residual left posterior the ethmoid air complex and left chamber of the sphenoid sinus MASTOID AIR CELLS: Unremarkable as visualized. No inflammatory changes. OTHER FINDINGS: None. IMPRESSION: No acute intracranial hemorrhage. Extensive postoperative changes of the nasal cavity and paranasal sinuses with resolution previously noted opacification residual left-sided posterior ethmoid air complex and left chamber of the sphenoid sinus
--- NOTE | 2018-06-18 10:51 | RAD ---
HISTORY: chest pain COMPARISON: Chest x-ray performed 05/26/18 TECHNIQUE: Chest, one view. FINDINGS: LUNGS: No focal consolidation. Please note that chest x-ray has limited sensitivity for the detection of pulmonary masses. PLEURA: No significant pleural effusion identified. No definite pneumothorax . CARDIOVASCULAR: Heart size appears within normal limits. Faint atherosclerotic calcifications of the aorta. OSSEOUS STRUCTURES: Degenerative changes of the spine. VISUALIZED UPPER ABDOMEN: Unremarkable. OTHER FINDINGS: None. IMPRESSION: No focal consolidation.
--- NOTE | 2018-06-18 13:16 | CP.PCM.HP ---
<YuridiaAz - Last Filed: 06/18/18 14:57> History of Present Illness - History of Present Illness History of Present Illness: PGY-1 History and Physical for Dr. New Patient is a 42 year old male with no significant past medical history presenting to ED with generalized L sided numbness/weakness for several months with associated L parietal headache and dizziness. He describes the headache as a sharp pain on the left side of head, which is intermittent, associated intermittent blurry vision. Patient states he has a history of syncope, last episode being 1 week ago at home. He denies any head trauma, stating he was on his bed, but syncope was not witnessed by who is with patient at bedside. Both patient and at bedside deny any slurred speech, convulsions, inability to walk, speech difficulties, or recent trauma. Patient also complains of associated L sided chest pain that began last night around 3 AM. Pain is nonradiating, described as a pressure sensation, associated with his L arm numbess/tingling per patient. Patient has not taken anything for the pain, does not appear in acute distress. He states his chief complaint is the L sided numbness and tingling. He denies any shortness of breath, diaphoresis, palpitations, leg pain, fevers, chills, nausea, vomiting, abdominal pain or diarrhea. 12 pt ROS reviewed and otherwise negative. Of note, patient has pre sented to ED prior for similar symptoms, last seen in 04/2017 for numbness and weakness but patient AMA'd before workup could be completed. PMHx: denies PSHx: polyp removal Allergies: ibuprofen and ASA--rash and tongue swelling Home Medications: none; states he was given gabapentin 300 mg daily for symptoms in past but did not take because it made him feel "sick". Family Hx: denies Social Hx: Social drinker, smokes marijuana occasionally. Denies tobacco or illicit drug use. Works "with computers". PMD: In the midst of switching PMDs to Dr. Putnam Present on Admission - Present on Admission Any Indicators Present on Admission: No Review of Systems - Review of Systems All systems: reviewed and no additional remarkable complaints except Review of Systems: as per HPI Past Patient History - Infectious Disease Hx of Infectious Diseases: None - Past Medical History & Family History Past Medical History?: Yes - Past Social History Smoking Status: Never Smoked - CARDIAC Hx Cardiac Disorders: No - PULMONARY Hx Respiratory Disorders: No - NEUROLOGICAL Hx Seizures: Yes - HEENT Hx HEENT Problems: No - RENAL Hx Chronic Kidney Disease: No - ENDOCRINE/METABOLIC Hx Endocrine Disorders: No - HEMATOLOGICAL/ONCOLOGICAL Hx Blood Disorders: No - INTEGUMENTARY Hx Dermatological Problems: No - MUSCULOSKELETAL/RHEUMATOLOGICAL Hx Falls: Yes - GENITOURINARY/GYNECOLOGICAL Hx Genitourinary Disorders: No - PSYCHIATRIC Hx Substance Use: No - SURGICAL HISTORY Hx Surgeries: Yes Other/Comment: Dental surgery , nasal surgery, sinus surgery,Polyps Removed. - ANESTHESIA Hx Anesthesia: Yes Hx Anesthesia Reactions: Yes Hx Malignant Hyperthermia: No Meds Allergies/Adverse Reactions: Allergies Allergy/AdvReac Type Severity Reaction Status Date / Time ibuprofen Allergy RASH Verified 05/26/18 02:10 naproxen sodium [From Aleve] Allergy RASH Verified 05/26/18 02:10 Physical Exam - Constitutional Appears: Non-toxic, No Acute Distress - Head Exam Head Exam: ATRAUMATIC, NORMAL INSPECTION, NORMOCEPHALIC Additional comments: TTP over L parietal area. No bruising, no ecchymosis, no rashes, no lacerations, no abrasions, no contusions - Eye Exam Eye Exam: EOMI, Normal appearance, PERRL Pupil Exam: NORMAL ACCOMODATION - ENT Exam ENT Exam: Mucous Membranes Moist, Normal Exam - Neck Exam Neck exam: Positive for: Full Rom, Normal Inspection. Negative for: Lymphadenopathy, Tenderness - Respiratory Exam Respiratory Exam: Clear to Auscultation Bilateral, NORMAL BREATHING PATTERN. absent: Accessory Muscle Use, Rales, Rhonchi, Wheezes, Respiratory Distress, Stridor - Cardiovascular Exam Cardiovascular Exam: REGULAR RHYTHM, +S1, +S2 - GI/Abdominal Exam GI & Abdominal Exam: Normal Bowel Sounds, Soft. absent: Distended, Firm, Guarding, Rebound, Rigid, Tenderness - Extremities Exam Extremities exam: Positive for: full ROM, normal capillary refill, normal inspection, pedal pulses present. Negative for: calf tenderness, pedal edema - Back Exam Back exam: NORMAL INSPECTION - Neurological Exam Neurological exam: Alert, Normal Gait, Oriented x3 Additional comments: Facial droop noted on L Decreased sensation over trigeminal nerve distribution, L Decreased sensation to LUE and LLE 3/5 strength LUE, LLE; 5/5 strength RUE, RLE Finger to nose, heel to fiore, fine motor touch intact Negative Romberg Negative pronator drift - Psychiatric Exam Psychiatric exam: Flat Affect - Skin Skin Exam: Dry, Intact, Normal Color, Warm Results - Vital Signs Recent Vital Signs: Last Vital Signs Temp 98.0 F 06/18/18 10:20 Pulse 65 06/18/18 10:40 Resp 17 06/18/18 10:20 BP 130/86 06/18/18 10:20 Pulse Ox 98 06/18/18 10:20 - Labs Result Diagrams: 06/18/18 04:35 06/18/18 04:35 Labs: Laboratory Results - last 24 hr 06/18/18 06/18/18 06/18/18 04:35 04:35 04:35 WBC 5.4 RBC 4.64 Hgb 14.5 Hct 43.8 MCV 94.5 H MCH 31.3 H MCHC 33.1 RDW 14.0 Plt Count 234 MPV 6.9 L Neut % (Auto) 45.9 L Lymph % (Auto) 41.1 H Stanton % (Auto) 7.1 Eos % (Auto) 5.1 H Baso % (Auto) 0.8 Neut # (Auto) 2.5 Lymph # (Auto) 2.2 Stanton # (Auto) 0.4 Eos # (Auto) 0.3 Baso # (Auto) 0.0 ESR PT 11.3 INR 1.0 APTT 35 H Sodium 141 Potassium 5.2 Chloride 108 H Carbon Dioxide 20 L Anion Gap 19 BUN 18 Creatinine 0.7 L Est GFR ( Amer) > 60 Est GFR (Non-Af Amer) > 60 Random Glucose 107 Calcium 9.0 Total Bilirubin 0.9 AST 45 ALT 12 L D Alkaline Phosphatase 75 Total Creatine Kinase CK-MB (Mass) Troponin I 0.0120 C-Reactive Protein NT-Pro-B Natriuret Pep 22.1 Total Protein 8.3 Albumin 4.8 Globulin 3.5 Albumin/Globulin Ratio 1.4 Free T4 TSH 3rd Generation Urine Color Urine Clarity Urine pH Ur Specific [place] Urine Protein Urine Glucose (UA) Urine Ketones Urine Blood Urine Nitrate Urine Bilirubin Urine Urobilinogen Ur Leukocyte Esterase Urine WBC (Auto) Ur Squamous Epith Cells Urine Opiates Screen Urine Methadone Screen Ur Barbiturates Screen Ur Phencyclidine Scrn Ur Amphetamines Screen U Benzodiazepines Scrn U Oth Cocaine Metabols U Cannabinoids Screen HIV 1&2 Antibody Screen 06/18/18 06/18/18 06/18/18 07:58 07:58 09:48 WBC RBC Hgb Hct MCV MCH MCHC RDW Plt Count MPV Neut % (Auto) Lymph % (Auto) Stanton % (Auto) Eos % (Auto) Baso % (Auto) Neut # (Auto) Lymph # (Auto) Stanton # (Auto) Eos # (Auto) Baso # (Auto) ESR PT INR APTT Sodium Potassium Chloride Carbon Dioxide Anion Gap BUN Creatinine Est GFR ( Amer) Est GFR (Non-Af Amer) Random Glucose Calcium Total Bilirubin AST ALT Alkaline Phosphatase Total Creatine Kinase CK-MB (Mass) Troponin I C-Reactive Protein NT-Pro-B Natriuret Pep Total Protein Albumin Globulin Albumin/Globulin Ratio Free T4 TSH 3rd Generation Urine Color Yellow Urine Clarity Clear Urine pH 5.0 Ur Specific [place] 1.026 Urine Protein Negative Urine Glucose (UA) Normal Urine Ketones Negative Urine Blood Negative Urine Nitrate Negative Urine Bilirubin Negative Urine Urobilinogen Normal Ur Leukocyte Esterase Neg Urine WBC (Auto) 1 Ur Squamous Epith Cells < 1 Urine Opiates Screen Negative Urine Methadone Screen Negative Ur Barbiturates Screen Negative Ur Phencyclidine Scrn Negative Ur Amphetamines Screen Negative U Benzodiazepines Scrn Negative U Oth Cocaine Metabols Negative U Cannabinoids Screen Negative HIV 1&2 Antibody Screen Negative 06/18/18 06/18/18 06/18/18 09:52 09:52 09:52 WBC RBC Hgb Hct MCV MCH MCHC RDW Plt Count MPV Neut % (Auto) Lymph % (Auto) Stanton % (Auto) Eos % (Auto) Baso % (Auto) Neut # (Auto) Lymph # (Auto) Stanton # (Auto) Eos # (Auto) Baso # (Auto) ESR 5 PT INR APTT Sodium Potassium Chloride Carbon Dioxide Anion Gap BUN Creatinine Est GFR ( Amer) Est GFR (Non-Af Amer) Random Glucose Calcium Total Bilirubin AST ALT Alkaline Phosphatase Total Creatine Kinase 173 H CK-MB (Mass) 3.26 Troponin I < 0.0120 C-Reactive Protein < 5.00 NT-Pro-B Natriuret Pep Total Protein Albumin Globulin Albumin/Globulin Ratio Free T4 0.85 TSH 3rd Generation 0.46 Urine Color Urine Clarity Urine pH Ur Specific [place] Urine Protein Urine Glucose (UA) Urine Ketones Urine Blood Urine Nitrate Urine Bilirubin Urine Urobilinogen Ur Leukocyte Esterase Urine WBC (Auto) Ur Squamous Epith Cells Urine Opiates Screen Urine Methadone Screen Ur Barbiturates Screen Ur Phencyclidine Scrn Ur Amphetamines Screen U Benzodiazepines Scrn U Oth Cocaine Metabols U Cannabinoids Screen HIV 1&2 Antibody Screen Assessment & Plan - Assessment and Plan (Free Text) Assessment: 42 year old male with no past significant medical history presenting with L sided numbness/tingling with associated headches, dizziness, blurry vision. Associated nonradiating L sided chest pain that began yesterday. Presented with similar symptoms in past, AMA'd before workup completed. Plan: L side Paresthesia, pain of L extremity L facial droop, numbness -CT head: no acute intracranial pathology -f/u MRI head -f/u RPR, HIV, lyme workup -ativan 0.5 mg IVP q4 prn -morphine 1 mg IV q4 prn -tylenol 650 mg PO q4 prn Chest pain, r/o ACS -pt denies any current chest, in no acute distress -BP mildly elevated 144/96 -trop x 1 negative -CXR: no acute findings -EKG: NSR @ 91 bpm -UDS negative -serial trops -repeat EKG -f/u ECHO PPx, Diet, Disposition -DVT ppx: scds -GI ppx: not indicated at this time -Diet: HHD -PT on board Case discussed with Dr. Virgen Shi DO, PGY-1 <Oseas New H - Last Filed: 06/18/18 15:56> Results - Vital Signs Recent Vital Signs: Last Vital Signs Temp 98.0 F 06/18/18 10:20 Pulse 65 06/18/18 10:40 Resp 17 06/18/18 10:20 BP 130/86 06/18/18 10:20 Pulse Ox 98 06/18/18 10:20 - Labs Result Diagrams: 06/18/18 04:35 06/18/18 04:35 Labs: Laboratory Results - last 24 hr 06/18/18 06/18/18 06/18/18 04:35 04:35 04:35 WBC 5.4 RBC 4.64 Hgb 14.5 Hct 43.8 MCV 94.5 H MCH 31.3 H MCHC 33.1 RDW 14.0 Plt Count 234 MPV 6.9 L Neut % (Auto) 45.9 L Lymph % (Auto) 41.1 H Stanton % (Auto) 7.1 Eos % (Auto) 5.1 H Baso % (Auto) 0.8 Neut # (Auto) 2.5 Lymph # (Auto) 2.2 Stanton # (Auto) 0.4 Eos # (Auto) 0.3 Baso # (Auto) 0.0 ESR PT 11.3 INR 1.0 APTT 35 H Sodium 141 Potassium 5.2 Chloride 108 H Carbon Dioxide 20 L Anion Gap 19 BUN 18 Creatinine 0.7 L Est GFR ( Amer) > 60 Est GFR (Non-Af Amer) > 60 Random Glucose 107 Calcium 9.0 Total Bilirubin 0.9 AST 45 ALT 12 L D Alkaline Phosphatase 75 Total Creatine Kinase CK-MB (Mass) Troponin I 0.0120 C-Reactive Protein NT-Pro-B Natriuret Pep 22.1 Total Protein 8.3 Albumin 4.8 Globulin 3.5 Albumin/Globulin Ratio 1.4 Free T4 TSH 3rd Generation Urine Color Urine Clarity Urine pH Ur Specific [place] Urine Protein Urine Glucose (UA) Urine Ketones Urine Blood Urine Nitrate Urine Bilirubin Urine Urobilinogen Ur Leukocyte Esterase Urine WBC (Auto) Ur Squamous Epith Cells Urine Opiates Screen Urine Methadone Screen Ur Barbiturates Screen Ur Phencyclidine Scrn Ur Amphetamines Screen U Benzodiazepines Scrn U Oth Cocaine Metabols U Cannabinoids Screen HIV 1&2 Antibody Screen 06/18/18 06/18/18 06/18/18 07:58 07:58 09:48 WBC RBC Hgb Hct MCV MCH MCHC RDW Plt Count MPV Neut % (Auto) Lymph % (Auto) Stanton % (Auto) Eos % (Auto) Baso % (Auto) Neut # (Auto) Lymph # (Auto) Stanton # (Auto) Eos # (Auto) Baso # (Auto) ESR PT INR APTT Sodium Potassium Chloride Carbon Dioxide Anion Gap BUN Creatinine Est GFR ( Amer) Est GFR (Non-Af Amer) Random Glucose Calcium Total Bilirubin AST ALT Alkaline Phosphatase Total Creatine Kinase CK-MB (Mass) Troponin I C-Reactive Protein NT-Pro-B Natriuret Pep Total Protein Albumin Globulin Albumin/Globulin Ratio Free T4 TSH 3rd Generation Urine Color Yellow Urine Clarity Clear Urine pH 5.0 Ur Specific [place] 1.026 Urine Protein Negative Urine Glucose (UA) Normal Urine Ketones Negative Urine Blood Negative Urine Nitrate Negative Urine Bilirubin Negative Urine Urobilinogen Normal Ur Leukocyte Esterase Neg Urine WBC (Auto) 1 Ur Squamous Epith Cells < 1 Urine Opiates Screen Negative Urine Methadone Screen Negative Ur Barbiturates Screen Negative Ur Phencyclidine Scrn Negative Ur Amphetamines Screen Negative U Benzodiazepines Scrn Negative U Oth Cocaine Metabols Negative U Cannabinoids Screen Negative HIV 1&2 Antibody Screen Negative 06/18/18 06/18/18 06/18/18 09:52 09:52 09:52 WBC RBC Hgb Hct MCV MCH MCHC RDW Plt Count MPV Neut % (Auto) Lymph % (Auto) [place] % (Auto) Eos % (Auto) Baso % (Auto) Neut # (Auto) Lymph # (Auto) Stanton # (Auto) Eos # (Auto) Baso # (Auto) ESR 5 PT INR APTT Sodium Potassium Chloride Carbon Dioxide Anion Gap BUN Creatinine Est GFR ( Amer) Est GFR (Non-Af Amer) Random Glucose Calcium Total Bilirubin AST ALT Alkaline Phosphatase Total Creatine Kinase 173 H CK-MB (Mass) 3.26 Troponin I < 0.0120 C-Reactive Protein < 5.00 NT-Pro-B Natriuret Pep Total Protein Albumin Globulin Albumin/Globulin Ratio Free T4 0.85 TSH 3rd Generation 0.46 Urine Color Urine Clarity Urine pH Ur Specific [place] Urine Protein Urine Glucose (UA) Urine Ketones Urine Blood Urine Nitrate Urine Bilirubin Urine Urobilinogen Ur Leukocyte Esterase Urine WBC (Auto) Ur Squamous Epith Cells Urine Opiates Screen Urine Methadone Screen Ur Barbiturates Screen Ur Phencyclidine Scrn Ur Amphetamines Screen U Benzodiazepines Scrn U Oth Cocaine Metabols U Cannabinoids Screen HIV 1&2 Antibody Screen Attending/Attestation - Attestation I have personally seen and examined this patient.: Yes I have fully participated in the care of the patient.: Yes I have reviewed all pertinent clinical information: Yes Notes (Text): 06/18/18 15:44 Medical attending: Patient was seen and examined by me with the medical residents in the ER and later again on the medical floor. Reviewed the above note by the resident and agree with the above note The patient reports he is concerned about the upper and lower extremity sensation. He was here previously however he left AMA at that time. The CT scan did not show any acute findings and so an MRI of the brain was ordered to assess for possible things such as a CVA or perhaps less likely MS or some other proccess. Also Lyme titers, HIV and RPR in case this is the cause of the sensations he is reporting. It may very well be something such as a migraine as well. Later I received multiple phone calls from the ER nurse and then later the 6T nurse that the patient's arm was in a lot of pain and he wanted pain medication. I came and saw him again and we had a very martín discussion about why I was reluctant to give him any control substances as he reports he cannot take ASA or naproxen. I was also informed that he does not like to taky gabapentin for pain. He expressed feeling frustrated that he was not getting pain medication. His UDS returned and was negative, so at this time we will give morphine however low dose. When we saw the patient in the ER he did not appear to be writhing in pain - he looked comfortable and was not tachycardic or elevated BP - and when we came back to see him again he again appeared comfortable. I was later notified that the patient did not tolerate the MRI despite being given ativan IV before the test. Given that he is not able to get MRI we will talk to him again about what other ways we can go. Oseas New
--- NOTE | 2018-06-18 14:55 | CP.PCM.PCO ---
Physician Communication Note - Physician Communication Note Physician Communication Note: See note above
[2018-06-18 15:52] VITALS: RESP 20
[2018-06-18 18:46] LABS: CK-MB 1.62 ng/mL (0.0-3.38)
--- NOTE | 2018-06-19 07:20 | CP.PCM.DIS ---
<Az Shi - Last Filed: 06/19/18 17:05> Provider - Provider Date of Admission: 06/18/18 09:15 Attending physician: Oseas New DO Time Spent in preparation of Discharge (in minutes): 40 Diagnosis - Discharge Diagnosis (1) Chest pain Status: Acute (2) Paresthesia and pain of left extremity Status: Acute Hospital Course - Lab Results Lab Results: Most Recent Lab Values WBC 5.4 K/uL (4.8-10.8) 06/18/18 04:35 RBC 4.64 Mil/uL (4.40-5.90) 06/18/18 04:35 Hgb 14.5 g/dL (12.0-18.0) 06/18/18 04:35 Hct 43.8 % (35.0-51.0) 06/18/18 04:35 MCV 94.5 fL (80.0-94.0) H 06/18/18 04:35 MCH 31.3 pg (27.0-31.0) H 06/18/18 04:35 MCHC 33.1 g/dL (33.0-37.0) 06/18/18 04:35 RDW 14.0 % (11.5-14.5) 06/18/18 04:35 Plt Count 234 K/uL (130-400) 06/18/18 04:35 MPV 6.9 fL (7.2-11.7) L 06/18/18 04:35 Neut % (Auto) 45.9 % (50.0-75.0) L 06/18/18 04:35 Lymph % (Auto) 41.1 % (20.0-40.0) H 06/18/18 04:35 [place] % (Auto) 7.1 % (0.0-10.0) 06/18/18 04:35 Eos % (Auto) 5.1 % (0.0-4.0) H 06/18/18 04:35 Baso % (Auto) 0.8 % (0.0-2.0) 06/18/18 04:35 Neut # (Auto) 2.5 K/uL (1.8-7.0) 06/18/18 04:35 Lymph # (Auto) 2.2 K/uL (1.0-4.3) 06/18/18 04:35 [place] # (Auto) 0.4 K/uL (0.0-0.8) 06/18/18 04:35 Eos # (Auto) 0.3 K/uL (0.0-0.7) 06/18/18 04:35 Baso # (Auto) 0.0 K/uL (0.0-0.2) 06/18/18 04:35 ESR 5 mm/hr (0-15) 06/18/18 09:52 PT 11.3 SECONDS (9.7-12.2) 06/18/18 04:35 INR 1.0 06/18/18 04:35 APTT 35 SECONDS (21-34) H 06/18/18 04:35 Sodium 141 mmol/L (132-148) 06/18/18 04:35 Potassium 5.2 mmol/L (3.6-5.2) 06/18/18 04:35 Chloride 108 mmol/L (98-107) H 06/18/18 04:35 Carbon Dioxide 20 mmol/L (22-30) L 06/18/18 04:35 Anion Gap 19 (10-20) 06/18/18 04:35 BUN 18 mg/dL (9-20) 06/18/18 04:35 Creatinine 0.7 mg/dL (0.8-1.5) L 06/18/18 04:35 Est GFR ( Amer) > 60 06/18/18 04:35 Est GFR (Non-Af Amer) > 60 06/18/18 04:35 Random Glucose 107 mg/dL (75-110) 06/18/18 04:35 Calcium 9.0 mg/dl (8.6-10.4) 06/18/18 04:35 Total Bilirubin 0.9 mg/dL (0.2-1.3) 06/18/18 04:35 AST 45 U/L (17-59) 06/18/18 04:35 ALT 12 U/L (21-72) L D 06/18/18 04:35 Alkaline Phosphatase 75 U/L (38-126) 06/18/18 04:35 Total Creatine Kinase 125 U/L (55-170) 06/18/18 17:24 CK-MB (Mass) 1.62 ng/mL (0.0-3.38) 06/18/18 17:24 Troponin I < 0.0120 ng/mL (0.00-0.120) 06/18/18 17:24 C-Reactive Protein < 5.00 mg/L (0.0-9.9) 06/18/18 09:52 NT-Pro-B Natriuret Pep 22.1 pg/mL (0-450) 06/18/18 04:35 Total Protein 8.3 g/dL (6.3-8.3) 06/18/18 04:35 Albumin 4.8 g/dL (3.5-5.0) 06/18/18 04:35 Globulin 3.5 gm/dL (2.2-3.9) 06/18/18 04:35 Albumin/Globulin Ratio 1.4 (1.0-2.1) 06/18/18 04:35 Free T4 0.85 ng/dL (0.78-2.19) 06/18/18 09:52 TSH 3rd Generation 0.46 mIU/L (0.46-4.68) 06/18/18 09:52 Urine Color Yellow (YELLOW) 06/18/18 07:58 Urine Clarity Clear (Clear) 06/18/18 07:58 Urine pH 5.0 (5.0-8.0) 06/18/18 07:58 Ur Specific [place] 1.026 (1.003-1.030) 06/18/18 07:58 Urine Protein Negative mg/dL (NEGATIVE) 06/18/18 07:58 Urine Glucose (UA) Normal mg/dL (Normal) 06/18/18 07:58 Urine Ketones Negative mg/dL (NEGATIVE) 06/18/18 07:58 Urine Blood Negative (NEGATIVE) 06/18/18 07:58 Urine Nitrate Negative (NEGATIVE) 06/18/18 07:58 Urine Bilirubin Negative (NEGATIVE) 06/18/18 07:58 Urine Urobilinogen Normal mg/dL (0.2-1.0) 06/18/18 07:58 Ur Leukocyte Esterase Neg Pam/uL (Negative) 06/18/18 07:58 Urine WBC (Auto) 1 /hpf (0-5) 06/18/18 07:58 Ur Squamous Epith Cells < 1 /hpf (0-5) 06/18/18 07:58 Urine Opiates Screen Negative (NEGATIVE) 06/18/18 07:58 Urine Methadone Screen Negative (NEGATIVE) 06/18/18 07:58 Ur Barbiturates Screen Negative (NEGATIVE) 06/18/18 07:58 Ur Phencyclidine Scrn Negative (NEGATIVE) 06/18/18 07:58 Ur Amphetamines Screen Negative (NEGATIVE) 06/18/18 07:58 U Benzodiazepines Scrn Negative (NEGATIVE) 06/18/18 07:58 U Oth Cocaine Metabols Negative (NEGATIVE) 06/18/18 07:58 U Cannabinoids Screen Negative (NEGATIVE) 06/18/18 07:58 RPR Nonreactive (NONREACTIVE) 06/18/18 09:52 HIV 1&2 Antibody Screen Negative (NEGATIVE) 06/18/18 09:48 - Hospital Course Hospital Course: HPI: Patient is a 42 year old male with no significant past medical history presenting to ED with generalized L sided numbness/weakness for several months with associated L parietal headache and dizziness. He describes the headache as a sharp pain on the left side of head, which is intermittent, associated intermittent blurry vision. Patient states he has a history of syncope, last episode being 1 week ago at home. He denies any head trauma, stating he was on his bed, but syncope was not witnessed by who is with patient at bedside. Both patient and at bedside deny any slurred speech, convulsions, inability to walk, speech difficulties, or recent trauma. Patient also complains of associated L sided chest pain that began last night around 3 AM. Pain is nonradiating, described as a pressure sensation, associated with his L arm numbness/tingling per patient. Patient has not taken anything for the pain, does not appear in acute distress. He states his chief complaint is the L sided numbness and tingling. He denies any shortness of breath, diaphoresis, palpitations, leg pain, fevers, chills, nausea, vomiting, abdominal pain or diarrhea. 12 pt review of systems reviewed and otherwise negative. Of note, patient has presented to ED prior for similar symptoms, last seen in 04/2017 for numbness and weakness but patient left hospital against medical advice before workup could be completed. During course of admission: CT head showed no acute intracranial pathology. Vitals remained stable, troponin obtained was negative with no acute findings on chest Xray or EKG. Urine toxicology was negative. Symptoms improved during hospital course, with vitals stable and patient in no acute distress. Patient is medically stable for discharge to home, as per Dr. New. CT of the head demonstrated no acute intracranial pathology. MRI was attempted twice but patient was unable to proceed with exam due to claustrophobia, despite administration of Ativan prior to exam. Patient has been instructed to follow-up for open MRI study to be completed at outside facility at [facility], which patient was amenable to. Patient has been instructed to follow up with his primary care provider (Dr. Putnam) within 3-5 days of discharge for further monitoring and management. Patient states he has a private neurologist (Dr. Gordon on [facility]) that he has seen in the past for similar symptoms. Patient states he was prescribed gabapentin but does not wish to take it as it causes GI upset. Patient has been instructed to follow up with Dr. Gordon for further evaluation and management of his numbness/tingling. If symptoms worsen, please return to ED immediately. The following is a summary of hospital course. For full detail, refer to EMR. - Date & Time of H&P Date of H&P: 06/19/18 Time of H&P: 07:20 Discharge Exam - Head Exam Head Exam: ATRAUMATIC, NORMAL INSPECTION, NORMOCEPHALIC - Eye Exam Eye Exam: EOMI, Normal appearance Pupil Exam: NORMAL ACCOMODATION - ENT Exam ENT Exam: Mucous Membranes Moist, Normal Exam - Neck Exam Neck exam: Full Rom, Normal Inspection - Respiratory Exam Respiratory Exam: Clear to PA & Lateral, NORMAL BREATHING PATTERN, UNREMARKABLE. absent: Accessory Muscle Use, Rhonchi, Wheezes, Respiratory Distress, Stridor - Cardiovascular Exam Cardiovascular Exam: REGULAR RHYTHM, +S1, +S2 - GI/Abdominal Exam GI & Abdominal Exam: Normal Bowel Sounds, Soft, Unremarkable - Extremities Exam Extremities exam: full ROM, normal inspection, pedal pulses present - Back Exam Back exam: NORMAL INSPECTION - Neurological Exam Neurological exam: Alert, Oriented x3 - Skin Skin Exam: Dry, Intact, Normal Color, Warm Discharge Plan - Follow Up Plan Condition: FAIR Disposition: HOME/ ROUTINE Instructions: Heart Healthy Diet, Chest Pain (DC), Paresthesias (DC) Additional Instructions: Patient is medically stable for discharge to home, as per Dr. New. CT of the head demonstrated no acute intracranial pathology. MRI was attempted twice but patient was unable to proceed with exam due to claustrophobia, despite administration of Ativan prior to exam. Patient has been instructed to follow-up for open MRI study to be completed at outside facility at [facility], which patient was amenable to. Patient has been instructed to follow up with his primary care provider (Dr. Putnam) within 3-5 days of discharge for further monitoring and management. Patient states he has a private neurologist (Dr. Gordon on [facility]) that he has seen in the past for similar symptoms. Patient states he was prescribed gabapentin but does not wish to take it as it causes GI upset. Patient has been instructed to follow up with Dr. Gordon for further evaluation and management of his numbness/tingling. If symptoms worsen, please return to ED immediately. <Oseas New - Last Filed: 06/19/18 17:53> Provider - Provider Date of Admission: 06/18/18 09:15 Attending physician: Oseas New DO Hospital Course - Lab Results Lab Results: Most Recent Lab Values WBC 5.1 K/uL (4.8-10.8) 06/19/18 08:02 RBC 4.57 Mil/uL (4.40-5.90) 06/19/18 08:02 Hgb 14.3 g/dL (12.0-18.0) 06/19/18 08:02 Hct 43.2 % (35.0-51.0) 06/19/18 08:02 MCV 94.5 fL (80.0-94.0) H 06/19/18 08:02 MCH 31.4 pg (27.0-31.0) H 06/19/18 08:02 MCHC 33.2 g/dL (33.0-37.0) 06/19/18 08:02 RDW 13.8 % (11.5-14.5) 06/19/18 08:02 Plt Count 234 K/uL (130-400) 06/19/18 08:02 MPV 7.1 fL (7.2-11.7) L 06/19/18 08:02 Neut % (Auto) 42.9 % (50.0-75.0) L 06/19/18 08:02 Lymph % (Auto) 41.9 % (20.0-40.0) H 06/19/18 08:02 [place] % (Auto) 8.6 % (0.0-10.0) 06/19/18 08:02 Eos % (Auto) 6.0 % (0.0-4.0) H 06/19/18 08:02 Baso % (Auto) 0.6 % (0.0-2.0) 06/19/18 08:02 Neut # (Auto) 2.2 K/uL (1.8-7.0) 06/19/18 08:02 Lymph # (Auto) 2.1 K/uL (1.0-4.3) 06/19/18 08:02 [place] # (Auto) 0.4 K/uL (0.0-0.8) 06/19/18 08:02 Eos # (Auto) 0.3 K/uL (0.0-0.7) 06/19/18 08:02 Baso # (Auto) 0.0 K/uL (0.0-0.2) 06/19/18 08:02 ESR 5 mm/hr (0-15) 06/18/18 09:52 PT 11.3 SECONDS (9.7-12.2) 06/18/18 04:35 INR 1.0 06/18/18 04:35 APTT 35 SECONDS (21-34) H 06/18/18 04:35 Sodium 135 mmol/L (132-148) 06/19/18 08:02 Potassium 4.7 mmol/L (3.6-5.2) 06/19/18 08:02 Chloride 100 mmol/L (98-107) 06/19/18 08:02 Carbon Dioxide 29 mmol/L (22-30) 06/19/18 08:02 Anion Gap 11 (10-20) 06/19/18 08:02 BUN 16 mg/dL (9-20) 06/19/18 08:02 Creatinine 0.8 mg/dL (0.8-1.5) 06/19/18 08:02 Est GFR ( Amer) > 60 06/19/18 08:02 Est GFR (Non-Af Amer) > 60 06/19/18 08:02 Random Glucose 97 mg/dL (75-110) 06/19/18 08:02 Calcium 9.0 mg/dl (8.6-10.4) 06/19/18 08:02 Phosphorus 3.3 mg/dL (2.5-4.5) 06/19/18 08:02 Magnesium 1.8 mg/dL (1.6-2.3) 06/19/18 08:02 Total Bilirubin 0.4 mg/dL (0.2-1.3) 06/19/18 08:02 AST 24 U/L (17-59) 06/19/18 08:02 ALT 18 U/L (21-72) L D 06/19/18 08:02 Alkaline Phosphatase 72 U/L (38-126) 06/19/18 08:02 Total Creatine Kinase 125 U/L (55-170) 06/18/18 17:24 CK-MB (Mass) 1.62 ng/mL (0.0-3.38) 06/18/18 17:24 Troponin I < 0.0120 ng/mL (0.00-0.120) 06/18/18 17:24 C-Reactive Protein < 5.00 mg/L (0.0-9.9) 06/18/18 09:52 NT-Pro-B Natriuret Pep 22.1 pg/mL (0-450) 06/18/18 04:35 Total Protein 7.0 g/dL (6.3-8.3) 06/19/18 08:02 Albumin 4.1 g/dL (3.5-5.0) 06/19/18 08:02 Globulin 2.9 gm/dL (2.2-3.9) 06/19/18 08:02 Albumin/Globulin Ratio 1.4 (1.0-2.1) 06/19/18 08:02 Free T4 0.85 ng/dL (0.78-2.19) 06/18/18 09:52 TSH 3rd Generation 0.46 mIU/L (0.46-4.68) 06/18/18 09:52 Urine Color Yellow (YELLOW) 06/18/18 07:58 Urine Clarity Clear (Clear) 06/18/18 07:58 Urine pH 5.0 (5.0-8.0) 06/18/18 07:58 Ur Specific [place] 1.026 (1.003-1.030) 06/18/18 07:58 Urine Protein Negative mg/dL (NEGATIVE) 06/18/18 07:58 Urine Glucose (UA) Normal mg/dL (Normal) 06/18/18 07:58 Urine Ketones Negative mg/dL (NEGATIVE) 06/18/18 07:58 Urine Blood Negative (NEGATIVE) 06/18/18 07:58 Urine Nitrate Negative (NEGATIVE) 06/18/18 07:58 Urine Bilirubin Negative (NEGATIVE) 06/18/18 07:58 Urine Urobilinogen Normal mg/dL (0.2-1.0) 06/18/18 07:58 Ur Leukocyte Esterase Neg Pam/uL (Negative) 06/18/18 07:58 Urine WBC (Auto) 1 /hpf (0-5) 06/18/18 07:58 Ur Squamous Epith Cells < 1 /hpf (0-5) 06/18/18 07:58 Urine Opiates Screen Negative (NEGATIVE) 06/18/18 07:58 Urine Methadone Screen Negative (NEGATIVE) 06/18/18 07:58 Ur Barbiturates Screen Negative (NEGATIVE) 06/18/18 07:58 Ur Phencyclidine Scrn Negative (NEGATIVE) 06/18/18 07:58 Ur Amphetamines Screen Negative (NEGATIVE) 06/18/18 07:58 U Benzodiazepines Scrn Negative (NEGATIVE) 06/18/18 07:58 U Oth Cocaine Metabols Negative (NEGATIVE) 06/18/18 07:58 U Cannabinoids Screen Negative (NEGATIVE) 06/18/18 07:58 RPR Nonreactive (NONREACTIVE) 06/18/18 09:52 T.pallidum Ab (FTA-ABS) Nonreactive (Nonreactive) 06/18/18 09:48 HIV 1&2 Antibody Screen Negative (NEGATIVE) 06/18/18 09:48 Attending/Attestation - Attestation I have personally seen and examined this patient.: Yes I have fully participated in the care of the patient.: Yes I have reviewed all pertinent clinical information, including history, physical exam and plan: Yes Notes (Text): 06/19/18 17:48 Medical attending: Patient was seen and examined by me. Agree with the above note by the resident The patient was out of bed in chair today. He reported feeling much better but still noted the parathesia like sensation of the arm, face, leg. He was able to walk ok but the sensation was still there Cardiac enzymes negative Yesterday he was not able to do the MRI We discussed with the patient further today and tried to do MRI again however I was notified he simply was not able to do the MRI despite premedication So at this time we explained to him that in the future he should consider going to a larger medical center where an open MRI is available. I explained to the patient that it maybe that this is something benign, however it would have been more reassuring if we could get an MRI imaging. Oseas New
[2018-06-19 08:12] LABS: BASO % 0.6 % (0.0-2.0); EOS # 0.3 K/uL (0.0-0.7); HEMOGLOBIN 14.3 g/dL (12.0-18.0); LYMPH # 2.1 K/uL (1.0-4.3); LYMPH % 41.9 % (20.0-40.0); MEAN CELL VOLUME 94.5 fL (80.0-94.0); MEAN CORPUSCULAR HEMOGLOBIN 31.4 pg (27.0-31.0); MEAN CORPUSCULAR HGB CONC 33.2 g/dL (33.0-37.0); MEAN PLATELET VOLUME 7.1 fL (7.2-11.7); MONO # 0.4 K/uL (0.0-0.8); MONO % 8.6 % (0.0-10.0); NEUT # 2.2 K/uL (1.8-7.0); NEUT % 42.9 % (50.0-75.0); NRBC % 0.1 % (0.0-2.0); RBC 4.57 Mil/uL (4.40-5.90); RED CELL DISTRIBUTION WIDTH 13.8 % (11.5-14.5); WHITE BLOOD COUNT 5.1 K/uL (4.8-10.8)
[2018-06-19 08:31] LABS: ALB/GLOB RATIO 1.4 (1.0-2.1); ALBUMIN 4.1 g/dL (3.5-5.0); ALT/SGPT 18 U/L (21-72); AST/SGOT 24 U/L (17-59); BLOOD UREA NITROGEN 16 mg/dL (9-20); GFR NON-AFRICAN AMERICAN > 60
[2018-06-19 09:25] VITALS: PULSE 67
[2018-06-19 09:28] VITALS: BP 130/89; TEMP 97.7; O2SAT 99
--- NOTE | 2018-06-19 13:25 | CP.PCM.PCO ---
Physician Communication Note - Physician Communication Note Physician Communication Note: See note above
[2018-06-20 20:49] LABS: LYME IGG NEGATIVE (NEGATIVE)
--- NOTE | 2018-06-20 21:55 | CARD ---
APPROVED REPORT Date of service: 06/18/2018 EKG Measurement Heart [id number] <Conclusion> Normal sinus rhythm Normal ECG
== END 2018-06-19 15:05 | disposition home or self-care (01) | DRG 203 ==
LOC: C.ER 04:03 → C.6T 09:15
PROVIDERS: ADMIT Hospitalist; ATTEND Hospitalist
DX: R07.9 Chest pain, unspecified (principal); F40.240 Claustrophobia; R20.0 Anesthesia of skin; F12.90 Cannabis use, unspecified, uncomplicated; R29.810 Facial weakness; M79.609 Pain in unspecified limb

== ENCOUNTER 2018-08-26 08:27 | Emergency (ER) | payer MEDICAID ==
[2018-08-26 08:27] VITALS: BMI 23.6
[2018-08-26 08:36] VITALS: BP 150/95; PULSE 81; RESP 20; TEMP 97.7; O2SAT 100
--- NOTE | 2018-08-26 09:30 | C.PDOC ---
History Of Present Illness 42 year old male presents to ED with complaint of right greater than left testicular pain for 2-3 days. He states the area was swollen earlier today, but then got better. Patient denies fever, trauma, dysuria, hematuria, abdominal pain, flank pain, penile discharge/pain. He denies prior episode of similar symptoms. Time Seen by Provider: 08/26/18 08:34 Chief Complaint (Nursing): Groin Pain History Per: Patient History/Exam Limitations: no limitations Onset/Duration Of Symptoms: Days (7) Current Symptoms Are (Timing): Still Present Severity: Mild Quality Of Discomfort: "Pain" Associated Symptoms: denies: Fever, Chills, Urinary Symptoms Past Medical History Reviewed: Historical Data, Nursing Documentation, Vital Signs Vital Signs: Last Vital Signs Temp 97.7 F 08/26/18 08:35 Pulse 81 08/26/18 08:35 Resp 20 08/26/18 08:35 BP 150/95 H 08/26/18 08:35 Pulse Ox 100 08/26/18 08:35 Primary Care Provider: Shaik Hernandez - Medical History PMH: Seizures Denies: Chronic Kidney Disease Surgical History: No Surg Hx Family History: States: No Known Family Hx - Social History Hx Tobacco Use: No Hx Alcohol Use: No Hx Substance Use: No - Immunization History Hx Tetanus Toxoid Vaccination: No Hx Influenza Vaccination: Yes Hx Pneumococcal Vaccination: No Review Of Systems Constitutional: Negative for: Fever, Chills, Weakness Gastrointestinal: Negative for: Abdominal Pain Genitourinary: Positive for: Other (right greater than left testicular pain and swelling). Negative for: Dysuria, Frequency, Hematuria, Penile Discharge, Rash, Penile Pain Neurological: Negative for: Weakness, Numbness Physical Exam - Physical Exam Appears: Well, Non-toxic, No Acute Distress, Other (comfortable) Skin: Normal Color, Warm, Dry Head: Normacephalic Oral Mucosa: Moist Neck: Normal ROM, Supple Chest: Symmetrical, No Deformity Cardiovascular: Rhythm Regular, No Murmur Respiratory: Normal Breath Sounds, No Accessory Muscle Use, No Rales, No Rhon chi, No Wheezing Gastrointestinal/Abdominal: Normal Exam, Bowel Sounds, Soft, No Tenderness Male Genital: Normal Inspection, No Testicular Tenderness, No Testicular Swelling, No Inguinal Tenderness, No Inguinal Swelling, No Scrotal Swelling, No Other (erythema or lesions) Neurological/Psych: Oriented x3 ED Course And Treatment O2 Sat by Pulse Oximetry: 100 (in RA) Pulse Ox Interpretation: Normal - CT Scan/US testicular ultrasound Other Rad Studies (CT/US): Read By Radiologist, Radiology Report Reviewed CT/US Interpretation: Accession No. : [id number]. Patient Name / ID : LEELEE MERCADO / [id number]. Exam Date : 08/26/2018 09:22:14 ( Approved ). Study Comment : Sex / Age : M / 42Y. Creator : Olman Baird MD. Dictator : Olman Baird MD. Childbirth And Infant Care Teacher : Fuel Testing Technician : Olman Baird MD. Approver2 : Report Date : 08/26/2018 10:08:29. My Comment : . Testicular ultrasound. HISTORY: Bilateral testicular pain; right greater than left. Comparison: None available. Technique: Real-time sonography was performed through the scrotum. Findings: Right testes: 4.9 x 2.4 x 3.3 centimeters. Normal flow. Homogeneous echotexture. Right epididymis measures 9.9 x 9.8 x 8.5 millimeters. Normal flow. Small right testicular hydrocele. Left testes: 4.8 x 2.1 x 3.2 centimeters. Homogeneous echotexture. Normal flow. Left epididymis measures 9.6 x 8.3 x 12.5 millimeters. Normal flow. Small left testicular hydrocele. Impression: Small bilateral testicular h ydroceles. Progress Note: Urine culture, urinalysis, and testicular US ordered for patient. PO tylenol ordered - patient refused. Appears comfortable, in no distress. Disposition Counseled Patient/Family Regarding: Studies Performed, Diagnosis, Need For Followup, Rx Given - Disposition Referrals: Pasha Valera MD [Staff Provider] - Disposition: HOME/ ROUTINE Disposition Time: 11:00 Condition: STABLE Additional Instructions: FOLLOW UP WITH UROLOGIST WITHIN 1 WEEK USE PAIN MEDICATION NEEDED RETURN TO ER IF SYMPTOMS WORSEN Prescriptions: Acetaminophen [Tylenol 325mg tab] 650 mg PO Q6 PRN #30 tab PRN Reason: pain/fever Instructions: Hydrocele Forms: [facility] (Micronesian) Print Language: FAROESE - Clinical Impression Clinical Impression: Hydrocele, bilateral - Scribe Statement The provider has reviewed the documentation as recorded by the Scribe (Aileen Eldridge) All medical record entries made by the Scribe were at my direction and personally dictated by me. I have reviewed the chart and agree that the record accurately reflects my personal performance of the history, physical exam, medical decision making, and the department course for this patient. I have also personally directed, reviewed, and agree with the discharge instructions and disposition.
--- NOTE | 2018-08-26 10:12 | US ---
Testicular ultrasound HISTORY: Bilateral testicular pain; right greater than left. Comparison: None available. Technique: Real-time sonography was performed through the scrotum. Findings: Right testes: 4.9 x 2.4 x 3.3 centimeters. Normal flow. Homogeneous echotexture. Right epididymis measures 9.9 x 9.8 x 8.5 millimeters. Normal flow. Small right testicular hydrocele. Left testes: 4.8 x 2.1 x 3.2 centimeters. Homogeneous echotexture. Normal flow. Left epididymis measures 9.6 x 8.3 x 12.5 millimeters. Normal flow. Small left testicular hydrocele. Impression: Small bilateral testicular hydroceles.
[2018-08-26 10:19] LABS: SQUAMOUS EPITHIAL 10 /hpf (0-5); URINE BACTERIA RARE (<OCC); URINE BILIRUBIN NEGATIVE (NEGATIVE); URINE BLOOD 1+ (NEGATIVE); URINE CLARITY Hazy (Clear); URINE COLOR Yellow (YELLOW); URINE GLUCOSE (UA) NORMAL (Normal); URINE LEUKOCYTE ESTERASE NEG Leu/uL (Negative); URINE PROTEIN NEGATIVE (NEGATIVE); URINE UROBILINOGEN NORMAL mg/dL (0.2-1.0)
== END 2018-08-26 12:30 | disposition home or self-care (01) ==
LOC: C.ER 08:27
DX: N43.3 Hydrocele, unspecified (principal)

== ENCOUNTER 2018-09-07 13:04 | Emergency (ER) | payer MEDICAID ==
[2018-09-07 13:04] VITALS: BMI 23.6
[2018-09-07 13:26] VITALS: O2SAT 99
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
[2018-09-07 13:51] VITALS: BP 134/90; PULSE 82; TEMP 97.3
[2018-09-07] MEDS ORDERED: Oxycodone/Acetaminophen 5/325 mg Tab PO STA (14:09)
[2018-09-07] MEDS ORDERED: Lidocaine 2% PF (10 ml) Amp EPI STA (14:09)
[2018-09-07] MEDS ORDERED: Bacitracin 500 Units/gm Oint Foilpak UD TOP ONE (14:09)
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
[2018-09-07 16:08] VITALS: RESP 20
--- NOTE | 2018-09-07 22:10 | RAD ---
Date of service: 09/07/2018 PROCEDURE: Left Knee Radiographs. HISTORY: Pain. COMPARISON: None. TECHNIQUE: 2 views obtained. FINDINGS: BONES: Normal. No fracture. JOINTS: Normal. No osteoarthritis. JOINT EFFUSION: None. OTHER FINDINGS: None. IMPRESSION: No evidence of acute fracture or dislocation.
--- NOTE | 2018-09-07 22:17 | RAD ---
PROCEDURE: Radiographs of the right great toe. TECHNIQUE:: AP radiograph of the right foot, with oblique and lateral view of the right great toe. COMPARISON: None. TECHNIQUE: 3 views obtained. FINDINGS: BONES: Normal. No fracture. JOINTS: Normal. SOFT TISSUES: Normal. OTHER FINDINGS: None. IMPRESSION: No evidence of acute fracture or dislocation.
== END 2018-09-07 16:07 | disposition home or self-care (01) ==
LOC: C.ER 13:04
DX: S06.9X9A Unspecified intracranial injury with loss of consciousness of unspecified duration, initial encounter (principal); Y04.0XXA Assault by unarmed brawl or fight, initial encounter; R51 Headache; M79.674 Pain in right toe(s); M25.562 Pain in left knee